=== PATIENT | male | born 1925 | race Caucasian/White ===

== ENCOUNTER 2017-07-23 03:35 | Inpatient (IN) | payer MEDICARE, OTHER ==
[2017-07-23] VITALS (22 sets, daily range): BP systolic 104–173; BP diastolic 57–96; PULSE 52–90; RESP 15–22; TEMP 97.2–98.5; O2SAT 96–100
[2017-07-23] MEDS ORDERED: ASPI325T PO (03:43)
[2017-07-23] MEDS ORDERED: CYMB60CA PO (03:47)
[2017-07-23] MEDS ORDERED: SPIR25TA PO (03:47)
[2017-07-23] MEDS ORDERED: ZIPR20 PO (03:47)
[2017-07-23] MEDS ORDERED: ATOR20TA15 PO (03:47)
[2017-07-23] MEDS ORDERED: NAME5TAB2 PO (03:47)
[2017-07-23] MEDS ORDERED: ALLO100T PO (03:47)
--- NOTE | 2017-07-23 04:02 | RADRPT ---
EXAM DATE/TIME: 07/23/2017 03:57 [facility] COMPARISON: No previous studies available for comparison. INDICATIONS : Short of breath. Altered mental status. MEDICAL HISTORY : None. SURGICAL HISTORY : CABG. ENCOUNTER: Initial ACUITY: 1 day PAIN SCORE: Non-responsive. LOCATION: Bilateral chest FINDINGS: Portable AP view of the chest demonstrates a normal-sized cardiac silhouette calcification of the aor ta in this patient post median sternotomy. Lungs are underinflated. No effusion, consolidation, or pn eumothorax is appreciated. Bones and soft tissues demonstrate no acute abnormality. CONCLUSION: Underinflation. However, no acute cardiopulmonary abnormality is appreciated. Lio Palacios MD on July 23, 2017 at 4:00 Board Certified Radiologist. This report was verified electronically.
[2017-07-23] MEDS ORDERED: DOCU100C PO (04:07)
[2017-07-23] MEDS ORDERED: METH5TAB PO (04:07)
[2017-07-23] MEDS ORDERED: LACTCAP8 PO (04:07)
[2017-07-23] MEDS ORDERED: MIRA3350 PO (04:08)
[2017-07-23 04:11] LABS: AUTOMATED NEUTROPHIL # 4.5 TH/MM3 (1.8-7.7); BASOPHIL # 0.1 TH/MM3 (0-0.2); BASOPHIL % 0.7 % (0.0-2.0); EOSINOPHIL # 0.8 TH/MM3 (0-0.4); EOSINOPHIL % 9.7 % (0.0-4.0); HEMATOCRIT 41.6 % (39.0-51.0); HEMO FLAGS DIFF FINAL; LYMPH % 30.4 % (9.0-44.0); LYMPHOCYTE # 2.6 TH/MM3 (1.0-4.8); MEAN CELL VOLUME 97.2 FL (80.0-100.0); MEAN CORPUSCULAR HEMOGLOBIN 31.1 PG (27.0-34.0); MONO % 6.8 % (0.0-8.0); NEUT % 52.4 % (16.0-70.0); PLATELET COUNT 325 TH/MM3 (150-450); RED BLOOD COUNT 4.28 MIL/MM3 (4.50-5.90); RED CELL DISTRIBUTION WIDTH 15.5 % (11.6-17.2); WHITE BLOOD COUNT 8.5 TH/MM3 (4.0-11.0)
[2017-07-23 04:21] LABS: APTT (PATIENT) 27.3 SEC (24.3-30.1); PROTHROMBIN TIME - PATIENT 11.2 SEC (9.8-11.6)
[2017-07-23] MEDS ORDERED: NEUR100C PO (04:26)
[2017-07-23] MEDS ORDERED: REST15CA PO (04:26)
[2017-07-23] MEDS ORDERED: FURO1TAB60 PO (04:26)
[2017-07-23] MEDS ORDERED: POTA10TA2 PO (04:26)
[2017-07-23] MEDS ORDERED: PERC10TA27 PO (04:26)
[2017-07-23] MEDS ORDERED: MILKSUS PO (04:26)
[2017-07-23] MEDS ORDERED: IPRASOL INH (04:26)
--- NOTE | 2017-07-23 04:30 | PD ---
HPI Chief Complaint: altered mental status Time Seen by Provider: 03:43 Travel History International Travel<30 days: No Contact w/Intl Traveler<30days: No History of Present Illness HPI The patient is an 89 year old male who presents to the [facility] emergency department with a history of change in baseline mentation that was first noticed by the [facility] staff at approximate 2 AM. The patient has a history of urinary retention requiring and out catheterization. They reportedly in and out catheterized him at approximate 2 AM when they noticed that he was less responsive. The patient has a history of dementia and normally becomes agitated, slightly combative when they attempted to catheterize him, however he did not seem to mind the procedure at all. They also reported that at 3 PM yesterday they noticed that he had a right facial droop. The patient has no other new extremity weakness. The patient does have a history of a left sided affecting cerebrovascular accident. The patient on arrival is awake and alert and requesting ice water. The patient denies any acute complaints. He is systems, the patient denies any known recent fevers, cough, congestion, neck pain, chest pain, shortness of breath, abdominal pain, vomiting, diarrhea, urinary symptoms, or new neurologic symptoms. According to the ambulance service that brought the patient and the patient was recently treated for both pneumonia and a urinary tract infection earlier earlier in June. The patient intermittently answers my questions, I am unsure whether this is related to the patient's history of dementia, his history of altered mentation, or his hearing problem. PFSH Past Medical History Narrative Medical The patient's past medical history is significant for coronary artery disease status post coronary artery bypass grafting, history of cerebrovascular accident with residual weakness of the left upper and left lower extremity, history of hypertension, history of acid reflux, hypertension, hyperlipidemia, anxiety and depression, angina, chronic back pain, congestive heart failure, history of headaches, history of being hard of hearing, history of hypotension, history of syncope, history of dementia with behavioral changes, history of venous stasis changes of the legs Past Surgical History Narrative Surgical The patient's past surgical history is not able to be obtained, however the patient has a midline sternotomy scar noted. Social History Alcohol Use: No Tobacco Use: No Substance Use: No Allergies-Medications (Allergen,Severity, Reaction): Coded Allergies: No Known Allergies (Unverified , 07/23/17) Reported Meds & Prescriptions Reported Meds & Active Scripts Active Reported Restoril (Temazepam) 15 Mg Cap 15 Mg PO HS PRN Potassium Chloride ER (Potassium Chloride) 10 Meq Tab 10 Meq PO DAILY Milk of Magnesia Liq (Magnesium Hydroxide) 400 Mg/5 Ml Susp 30 Ml PO Q12HR PRN Percocet (Oxycodone-Acetaminophen) 10-325 mg Tab 1 Tab PO Q4H PRN Lasix (Furosemide) 40 Mg Tab 40 Mg PO DAILY Duoneb (Ipratropium-Albuterol Neb) 0.5-2.5 Mg/3 Ml Neb 1 Nebule INH Q6HR NEB Neurontin (Gabapentin) 100 Mg Cap 100 Mg PO TID Miralax Powder (Polyethylene Glycol 3350 Powder) 17 Gm Powd 17 Gm PO DAILY Mix and dissolve one measuring cap-ful (17 grams) in water or juice. Methadone (Methadone HCl) 5 Mg Tab 5 Mg PO DAILY Docusate Sodium 100 Mg Cap 100 Mg PO BID Probiotic (Lactobacillus Acidophilus) 10 Billion Cell Cap 1 Cap PO BID Allopurinol 100 Mg Tab 100 Mg PO BID Spironolactone 25 Mg Tab 25 Mg PO DAILY Namenda (Memantine) 5 Mg Tab 5 Mg PO DAILY Geodon (Ziprasidone) 20 Mg Cap 20 Mg PO BID Cymbalta DR (Duloxetine HCl) 60 Mg Capdr 60 Mg PO DAILY Atorvastatin (Atorvastatin Calcium) 20 Mg Tab 20 Mg PO HS Aspirin 325 Mg Tab 325 Mg PO DAILY Review of Systems Except as stated in HPI: all other systems reviewed are Neg General / Constitutional: No: Fever Eyes: No: Visual changes HENT: No: Headaches Cardiovascular: No: Chest Pain or Discomfort Respiratory: No: Shortness of Breath Gastrointestinal: No: Abdominal Pain Genitourinary: No: Dysuria Musculoskeletal: No: Pain Skin: No Rash Neurologic: Positive: Change in Mentation, No: Weakness Psychiatric: No: Depression Endocrine: No: Polydipsia Hematologic/Lymphatic: No: Easy Bruising Physical Exam Narrative General: The patient is a well-developed well-nourished male in no acute distress. Head and Neck exam: Head is normocephalic atraumatic. Eyes: EOMI, pupils are equal round and reactive to light and small on examination a 2 mm. Nose: Midline septum with pink mucous membranes Mouth: Dentition unremarkable. Moist mucus membranes. Posterior oropharynx is not erythematous. No tonsillar hypertrophy. Uvula midline. Airway patent. Neck: No palpable lymphadenopathy. No nuchal rigidity. No thyromegaly. Cardiovascular: Irregularly irregular with a rate in the 70s with a 2/6 systolic murmur audible. No pulse deficit to the extremities and simultaneous auscultation and palpation of his radial artery. Lungs: Clear to auscultation bilaterally. No wheezes, rhonchi, or rales. Abdomen: Soft, without tenderness to palpation in all 4 quadrants of the abdomen. No guarding, rebound, or rigidity. Normal bowel sounds are audible. No tenderness on palpation of McBurney's point. Extremities: No clubbing or cyanosis. The patient has chronic venous stasis changes noted of bilateral lower extremities with trace pedal edema on the right, 1+ on the left. The patient has less than 3 second capillary refill of his digits per Back: No costovertebral angle tenderness to palpation. Neurologic Exam: Cranial nerves II through XII are intact. There is no discernible facial droop at this time. The patient has strength on examination that is 5 over 5 in the right upper and right lower extremity. The patient's strength on the left is 4 over 5 in the upper extremity and 3 over 5 in the lower extremity. The patient has intact sensation over all dermatomes. Skin Exam: No rash noted. Intact skin that is warm and dry. Data Data Last Documented VS Vital Signs Date Time Temp Pulse Resp B/P (MAP) Pulse Ox O2 Delivery O2 Flow Rate FiO2 07/23/17 05:36 99 Room Air 07/23/17 05:24 73 16 104/57 (73) 07/23/17 03:40 98.1 Orders Orders Electrocardiogram (07/23/17 03:44) Complete Blood Count With Diff (07/23/17 03:44) Comprehensive Metabolic Panel (07/23/17 03:44) Creatine Kinase (Cpk) (07/23/17 03:44) Ckmb (Isoenzyme) Profile (07/23/17 03:44) Troponin I (07/23/17 03:44) B-Type Natriuretic Peptide (07/23/17 03:44) Prothrombin Time / Inr (Pt) (07/23/17 03:44) Act Partial Throm Time (Ptt) (07/23/17 03:44) Blood Culture (07/23/17 03:44) C-Reactive Protein (Crp) (07/23/17 03:44) Urinalysis - C+S If Indicated (07/23/17 03:44) Magnesium (Mg) (07/23/17 03:44) Chest, Single Ap (07/23/17 03:44) Ct Brain W/O Iv Contrast(Rout) (07/23/17 03:44) Iv Access Insert/Monitor (07/23/17 03:44) Ecg Monitoring (07/23/17 03:44) Oximetry (07/23/17 03:44) Lactic Acid Sepsis Protocol (07/23/17 03:44) Ciprofloxacin 400 Mg Premix (Cipro 400 M (07/23/17 05:00) Nitroglycerin 2% Oint (Nitroglycerin 2% (07/23/17 05:15) Aspirin Chew (Aspirin Chew) (07/23/17 05:15) Admit Order (Ed Use Only) (07/23/17 05:48) Sodium Chlor 0.9% 250 Ml Inj (Ns 250 Ml (07/23/17 06:00) Admit Order (Ed Use Only) (07/23/17 05:51) Labs Laboratory Tests Test 07/23/17 03:50 White Blood Count 8.5 TH/MM3 Red Blood Count 4.28 MIL/MM3 Hemoglobin 13.3 GM/DL Hematocrit 41.6 % Mean Corpuscular Volume 97.2 FL Mean Corpuscular Hemoglobin 31.1 PG Mean Corpuscular Hemoglobin Concent 32.0 % Red Cell Distribution Width 15.5 % Platelet Count 325 TH/MM3 Mean Platelet Volume 7.7 FL Neutrophils (%) (Auto) 52.4 % Lymphocytes (%) (Auto) 30.4 % Monocytes (%) (Auto) 6.8 % Eosinophils (%) (Auto) 9.7 % Basophils (%) (Auto) 0.7 % Neutrophils # (Auto) 4.5 TH/MM3 Lymphocytes # (Auto) 2.6 TH/MM3 Monocytes # (Auto) 0.6 TH/MM3 Eosinophils # (Auto) 0.8 TH/MM3 Basophils # (Auto) 0.1 TH/MM3 CBC Comment DIFF FINAL Differential Comment Prothrombin Time 11.2 SEC Prothromb Time International Ratio 1.0 RATIO Activated Partial Thromboplast Time 27.3 SEC Blood Urea Nitrogen 12 MG/DL Creatinine 0.83 MG/DL Random Glucose 95 MG/DL Total Protein 7.0 GM/DL Albumin 2.6 GM/DL Calcium Level 8.7 MG/DL Magnesium Level 2.2 MG/DL Alkaline Phosphatase 126 U/L Aspartate Amino Transf (AST/SGOT) 19 U/L Alanine Aminotransferase (ALT/SGPT) 11 U/L Total Bilirubin 0.5 MG/DL Sodium Level 144 MEQ/L Potassium Level 4.7 MEQ/L Chloride Level 107 MEQ/L Carbon Dioxide Level 31.5 MEQ/L Anion Gap 6 MEQ/L Estimat Glomerular Filtration Rate 87 ML/MIN Lactic Acid Level 1.3 mmol/L Total Creatine Kinase 52 U/L Troponin I 0.12 NG/ML C-Reactive Protein 1.39 MG/DL B-Type Natriuretic Peptide 78 PG/ML MDM Medical Decision Making Medical Screen Exam Complete: Yes Emergency Medical Condition: Yes Medical Record Reviewed: Yes Interpretation(s) Last Impressions Head CT 07/23/17343 Signed Impressions: Service Date/Time: Sunday, July 23, 2017 04:20 - CONCLUSION: 1. No acute intracranial abnormality is identified. 2. Possible spinal canal narrowing at the C1-C2 level. Lio Palacios MD Chest X-Ray 07/23/17343 Signed Impressions: Service Date/Time: Sunday, July 23, 2017 03:57 - CONCLUSION: Underinflation. However, no acute cardiopulmonary abnormality is appreciated. Lio Palacios MD Differential Diagnosis Altered mental status related to intracranial hemorrhage, versus intracranial mass, versus ischemic stroke, versus sepsis related encephalopathy, versus metabolic encephalopathy, versus infectious process such as UTI Narrative Course During the course of the patients emergency department visit, the patients history, examination, and differential diagnosis were reviewed with the patient. The patient had IV access obtained and blood work sent for analysis. The patient was placed on a monitoring and evaluation advisor with oximetry and blood pressure monitoring. An ECG was done on arrival. The patient's ECG shows a junctional appearing rhythm with frequent premature ventricular complexes. No acute ST segment elevation is noted. Review of the patient's [facility] record reveals that on July 21 he did have a urinary tract infection diagnosed by urinalysis with a culture positive for Serratia that was sensitive to ciprofloxacin. The patient was initially provided ciprofloxacin 400 mg IV 1. The patients laboratory studies were reviewed and remarkable for a white count of 8.5, hemoglobin 13.3, platelets 325 with 9.7 eosinophils, lactic acid 1.3, PT 11.2, PTT 27.3. CMP is remarkable for a GFR of 87, ALT 11, alkaline phosphatase 126, troponin I 0.12, CPK 52, C-reactive protein 1.39, albumin 2.6, BNP 78, lactic acid 1.3. PT PTT within normal limits. INR 1.0 Given the patient's elevated troponin with normal renal function and dysrhythmia , aspirin 324 mg was administered 1, an inch of Nitropaste was ordered to be placed on the chest wall. The patient's initial blood pressure was a systolic of 170, however it then dropped down to 104 prior to the placement of the nitroglycerin. The patient continues to be chest pain-free. The patient's nitroglycerin will be held while the patient is given a normal saline 250 mL bolus. The patient will be started on heparin per [place] protocol due to the patient's dysrhythmia and elevated troponin I as I'm concerned that this may be a non-STEMI. Radiology studies were reviewed and remarkable for a chest x-ray that shows evidence of under inflation, however no acute cardiopulmonary abnormality is otherwise appreciated. CT scan of the brain shows no acute intracranial abnormality, possible spinal canal narrowing at C1-C2. The patients results were discussed with the patient, including the plan of care. I explained that further testing and/ or monitoring is indicated based on the patients history, examination, and/ or laboratory findings. Therefore, I recommended admission for additional evaluation. The patient expressed understanding and was agreeable with this plan. The patient was admitted to the hospital in guarded condition and [facility] Physician Communication Physician Communication The patient's case was discussed with Dr. Orosco who did agree to admit the patient for further evaluation and treatment at this time. Diagnosis Primary Impression: Dysrhythmia, cardiac Qualified Codes: I49.8 - Other specified cardiac arrhythmias Additional Impressions: Altered mental status Qualified Codes: R40.0 - Somnolence Elevated troponin Urinary tract infection Qualified Codes: T83.511A - Infection and inflammatory reaction due to indwelling urethral catheter, initial encounter; N39.0 - Urinary tract infection , site not specified Admitting Information Admitting Physician Requests: Admit Daphne Denney MD Jul 23, 2017 04:30
--- NOTE | 2017-07-23 04:43 | RADRPT ---
EXAM DATE/TIME: 07/23/2017 04:20 [facility] COMPARISON: No previous studies available for comparison. INDICATIONS : Altered mental status, generalized weakness. RADIATION DOSE: 32.94 CTDIvol (mGy) MEDICAL HISTORY : Non-responsive. SURGICAL HISTORY : Non-responsive. ENCOUNTER: Initial ACUITY: 1 day PAIN SCALE: Non-responsive LOCATION: cranial TECHNIQUE: Multiple contiguous axial images were obtained of the head. Using automated exposure control and adj ustment of the mA and/or kV according to patient size, radiation dose was kept as low as reasonably a chievable to obtain optimal diagnostic quality images. DICOM format image data is available electro nically for review and comparison. FINDINGS: CEREBRUM: There is generalized atrophy. Ventricles are normal in size given the degree of atrophy present. No evidence of midline shift, mass lesion, hemorrhage or acute infarction. No extra-axial fluid collect ions are seen. POSTERIOR FOSSA: The cerebellum and brainstem are intact. The 4th ventricle is midline. The cerebellopontine angle i s unremarkable. EXTRACRANIAL: Visualized sinuses are clear. There is possible narrowing at the C1-C2 level. SKULL: The calvaria is intact. No evidence of skull fracture. CONCLUSION: 1. No acute intracranial abnormality is identified. 2. Possible spinal canal narrowing at the C1-C2 level. Lio Palacios MD on July 23, 2017 at 4:40 Board Certified Radiologist. This report was verified electronically.
[2017-07-23 04:56] LABS: ALKALINE PHOSPHATASE 126 U/L (45-117); ALT (GPT) 11 U/L (12-78); ANION GAP 6 MEQ/L (5-15); AST (GOT) 19 U/L (15-37); BICARBONATE 31.5 MEQ/L (21.0-32.0); BLOOD UREA NITROGEN 12 MG/DL (7-18); CHLORIDE 107 MEQ/L (98-107); GLOMERULAR FILTRATION RATE 87 ML/MIN (>89); MAGNESIUM 2.2 MG/DL (1.5-2.5); SODIUM (NA) 144 MEQ/L (136-145); TOTAL BILIRUBIN ADULT 0.5 MG/DL (0.2-1.0)
[2017-07-23 04:57] LABS: CREATINE KINASE 52 U/L (39-308); POTASSIUM 4.7 MEQ/L (3.5-5.1)
[2017-07-23] MEDS ORDERED: CIPROFLOXACIN 400 MG PREMIX 200 ML IV ONE (05:00)
[2017-07-23] MEDS ORDERED: ASPIRIN 81 MG CHEW TAB CHEW ONE (05:15)
[2017-07-23] MEDS ORDERED: NITROGLYCERIN 2% OINT 1 GM PACKET TOPICAL ONE (05:15)
[2017-07-23] MEDS ORDERED: SODIUM CHLOR 0.9% 250 ML INJ 250 ML IV ONE (06:00)
[2017-07-23] MEDS ORDERED: NALOXONE HCL 0.4 MG/ML AMP IV PRN (07:00)
[2017-07-23] MEDS ORDERED: SODIUM CHLORIDE 0.9% FLUSH 10 ML FLUSH IV FLUSH PRN (07:00)
[2017-07-23] MEDS: HEPARIN-D5W 25,000 U/250 ML 250 ML IV PRN (08:01)
[2017-07-23] MEDS: SODIUM CHLORIDE 0.9% FLUSH 10 ML FLUSH IV FLUSH SCH ×2 (08:05→20:36)
--- NOTE | 2017-07-23 09:10 | PD.CONS ---
History of Present Illness Service Neurology Consult Requested By medical Reason for Consult stroke/sz Primary Care Physician Amandeep Mccarty MD History of Present Illness 89 year old male who presents to the [facility] emergency department with worsening confusion, lethargy noticed by the senior living staff at approximate 2 AM, The patient has a history of dementia and normally becomes agitated, slightly combative when they attempted to catheterize him, however he did not seem to mind the procedure at all. They also reported that at 3 PM yesterday they noticed that he had a right facial droop. The patient has no other new extremity weakness. The patient does have a history of a left sided affecting cerebrovascular accident. ct brain naicp. pmhx obtained from medical chart as pt is a poor hx. he states he had a stroke affecting his left side. unable to give details of when/where. PFSH Past Medical History Narrative Medical The patient's past medical history is significant for coronary artery disease status post coronary artery bypass grafting, history of cerebrovascular accident with residual weakness of the left upper and left lower extremity, history of hypertension, history of acid reflux, hypertension, hyperlipidemia, anxiety and depression, angina, chronic back pain, congestive heart failure, history of headaches, history of being hard of hearing, history of hypotension, history of syncope, history of dementia with behavioral changes, history of venous stasis changes of the legs Past Surgical History Narrative Surgical The patient's past surgical history is not able to be obtained, however the patient has a midline sternotomy scar noted. Social History Alcohol Use: No Tobacco Use: No Substance Use: No Allergies-Medications (Allergen,Severity, Reaction): Coded Allergies: No Known Allergies (Unverified , 07/23/17) Reported Meds & Prescriptions Reported Meds & Active Scripts Active Reported Restoril (Temazepam) 15 Mg Cap 15 Mg PO HS PRN Potassium Chloride ER (Potassium Chloride) 10 Meq Tab 10 Meq PO DAILY Milk of Magnesia Liq (Magnesium Hydroxide) 400 Mg/5 Ml Susp 30 Ml PO Q12HR PRN Percocet (Oxycodone-Acetaminophen) 10-325 mg Tab 1 Tab PO Q4H PRN Lasix (Furosemide) 40 Mg Tab 40 Mg PO DAILY Duoneb (Ipratropium-Albuterol Neb) 0.5-2.5 Mg/3 Ml Neb 1 Nebule INH Q6HR NEB Neurontin (Gabapentin) 100 Mg Cap 100 Mg PO TID Miralax Powder (Polyethylene Glycol 3350 Powder) 17 Gm Powd 17 Gm PO DAILY Mix and dissolve one measuring cap-ful (17 grams) in water or juice. Methadone (Methadone HCl) 5 Mg Tab 5 Mg PO DAILY Docusate Sodium 100 Mg Cap 100 Mg PO BID Probiotic (Lactobacillus Acidophilus) 10 Billion Cell Cap 1 Cap PO BID Allopurinol 100 Mg Tab 100 Mg PO BID Spironolactone 25 Mg Tab 25 Mg PO DAILY Namenda (Memantine) 5 Mg Tab 5 Mg PO DAILY Geodon (Ziprasidone) 20 Mg Cap 20 Mg PO BID Cymbalta DR (Duloxetine HCl) 60 Mg Capdr 60 Mg PO DAILY Atorvastatin (Atorvastatin Calcium) 20 Mg Tab 20 Mg PO HS Aspirin 325 Mg Tab 325 Mg PO DAILY Review of Systems Except as stated in HPI: all other systems reviewed are Neg Review of Systems All other ROS: ROS reviewed as documented in chart Past Family Social History Allergies: Coded Allergies: No Known Allergies (Unverified , 07/23/17) Active Ordered Medications Current Medications Medications (Trade) Dose Ordered Sig/Alejandra Route Start Time Stop Time Status Last Admin Heparin Sodium/ Dextrose 250 ml @ 11.4 mls/hr [id number] PRN IV 07/23/17 06:40 07/23/17 08:01 (NS Flush) 2 ml UNSCH PRN IV FLUSH 07/23/17 07:00 (NS Flush) 2 ml BID IV FLUSH 07/23/17 09:00 07/23/17 08:05 (Narcan Inj) 0.4 mg UNSCH PRN IV 07/23/17 07:00 Ciprofloxacin/ Dextrose 200 ml @ 200 mls/hr Q12H IV 07/23/17 18:00 Exam I&O / VS Vital Signs Date Time Temp Pulse Resp B/P (MAP) Pulse Ox O2 Delivery O2 Flow Rate FiO2 07/23/17 08:00 97 Nasal Cannula 2.00 07/23/17 08:00 72 15 142/70 (94) 97 Nasal Cannula 2.00 07/23/17 07:00 79 22 132/60 (84) 97 Nasal Cannula 2.00 07/23/17 06:21 64 17 142/91 (108) 99 Room Air 07/23/17 05:36 99 Room Air 07/23/17 05:24 73 16 104/57 (73) Room Air 07/23/17 05:19 96 Room Air 07/23/17 03:40 98.1 16 173/80 (111) 07/23/17 03:40 98.1 72 16 173/80 (111) 99 Room Air Neurologic: Alert Psychiatric: Cooperative Exam Comments ox 1. unable to give date or exact place. inattentive but follows, reduced hearing bilterally, dysarthric speech, face sym grossly, mild left hemiparesis 3 -4/5 leg weaker then arm, mild left sided hyper-reflexia, no clonus, planterflexor, withdraws to pin, further sensory/cerebellar/gait limited 2/2 mental status, fall risk Review/Management Diagnosis/Plan: (1) CVA, old, hemiparesis ICD Codes: I69.359 - Hemiplegia and hemiparesis following cerebral infarction affecting unspecified side Status: Chronic Plan: probably 2/2 uti r/o new infarct/sz recs eeg mri brain therapy follow exam medical tx'ing uti (2) UTI (urinary tract infection) ICD Codes: N39.0 - Urinary tract infection, site not specified Status: Acute (3) Altered mental status ICD Codes: R41.82 - Altered mental status, unspecified Status: Acute (4) Urinary tract infection ICD Codes: N39.0 - Urinary tract infection, site not specified Status: Acute Problem Qualifiers (1) Altered mental status: Qualified Codes: R40.0 - Somnolence (2) Urinary tract infection: Qualified Codes: T83.511A - Infection and inflammatory reaction due to indwelling urethral catheter, initial encounter; N39.0 - Urinary tract infection , site not specified Yordy Wheatley MD Jul 23, 2017 09:10
--- NOTE | 2017-07-23 09:23 | RADRPT ---
EXAM DATE/TIME: 07/23/2017 08:03 [facility] COMPARISON: No previous studies available for comparison. INDICATIONS : Transient ischemic attack. MEDICAL HISTORY : Hypertension. Gastroesophageal reflux disease. Dementia. Cerebrovascular accident. Hyperlipidemia. De pression. Anxiety. Chronic back pain. Congestive heart failure. Headaches. Hearing loss. Coronary art filiberto disease. Lower extremity venous stasis. Anticoagulant therapy. SURGICAL HISTORY : CABG. ENCOUNTER: Initial ACUITY: 1 day PAIN SCORE: 0/10 LOCATION: Bilateral neck PEAK SYSTOLIC VELOCITIES (cm/sec): ICA/CCA RATIO: Right: 1.5 Left: 1.2 ICA: Right: 59 Left: 71 CCA: Right: 40 Left: 60 ECA: Right: 79 Left: 66 VERTEBRAL: Right: 41 antegrade Left: 44 antegrade Elevated flow velocities and ICA/CCA ratios have been found to correlate with increased degrees of vessel stenosis, calculated as percentage of diameter relative to a normal segment of distal ICA/CCA FINDINGS: RIGHT CAROTID: Moderate calcific plaquing. No significant stenosis is visualized. The waveforms are within normal l imits. LEFT CAROTID: Moderate calcific plaquing. No significant stenosis is visualized. The waveforms are within normal l imits. VERTEBRAL ARTERIES: Antegrade flow is seen in both vertebral arteries. MISCELLANEOUS: None. CONCLUSION: No evidence of flow-limiting carotid stenosis. Lio Méndez MD on July 23, 2017 at 9:11 Board Certified Radiologist. This report was verified electronically.
--- NOTE | 2017-07-23 10:44 | EKG ---
Date Performed: 07/23/2017 Time Performed: 04:02:45 PTAGE: 89 years EKG: Atrial fibrillation with controlled ventricular rate Ventricular premature complexes Left b undle branch block Left axis deviation ABNORMAL ECG PREVIOUS TRACING : 07/23/2017 04.01 DOCTOR: Gerald Denney Interpretating Date/Time 07/23/2017 10:43:41
[2017-07-23] MEDS ORDERED: MAGNESIUM HYDROXIDE SUSP 30 ML CUP PO PRN (11:00)
--- NOTE | 2017-07-23 11:01 | HHI.HP ---
HPI Service [facility] Hospitalists Primary Care Physician Amandeep Mccarty MD Admission Diagnosis AMS, Dysrhythmia, elevated troponin, UTI Diagnoses: (1) CVA, old, hemiparesis Diagnosis: Secondary (2) Hemiplegia following CVA (cerebrovascular accident) Diagnosis: Principal (3) Elevated troponin Diagnosis: Principal (4) Altered mental status Diagnosis: Principal (5) Dysrhythmia, cardiac (6) Urinary tract infection Diagnosis: Secondary (7) UTI (urinary tract infection) Diagnosis: Principal Chief Complaint: Altered mental status at the shelter facility Travel History International Travel<30 Days: No Contact w/Intl Traveler <30 Da: No History of Present Illness The patient is an 89 year old male who presents to the [facility] emergency department with a history of change in baseline mentation that was first noticed by the custodial staff at approximate 2 AM. The patient has a history of urinary retention requiring IN and out catheterization. They reportedly in and out catheterized him at approximate 2 AM when they noticed that he was less responsive. The patient has a history of dementia and normally becomes agitated, slightly combative when they attempted to catheterize him, however he did not seem to mind the procedure at all. They also reported that at 3 PM yesterday they noticed that he had a right facial droop. The patient has no other new extremity weakness. The patient does have a history of a left sided affecting cerebrovascular accident. The patient on arrival is awake and alert and requesting ice water. The patient denies any acute complaints. HIS REVIEW OF systems, the patient denies any known recent fevers,cough, congestion, neck pain, chest pain, shortness of breath, abdominal pain, vomiting, diarrhea, urinary symptoms, or new neurologic symptoms. According to the ambulance service that brought the patient and the patient was recently treated for both pneumonia and a urinary tract infection earlier earlier in June. The patient intermittently answers my questions, I am unsure whether this is related to the patient's history of dementia, his history of altered mentation, or his hearing problem. Patient did not follow any commands for me when I was in the room his nurse stated that he followed some for her earlier Review of Systems ROS Limitations: Altered Mental Status, Poor Historian Past Family Social History Past Medical History The patient's past medical history is significant for coronary artery disease status post coronary artery bypass grafting, history of cerebrovascular accident with residual weakness of the left upper and left lower extremity, history of hypertension, history of acid reflux, hypertension, hyperlipidemia, anxiety and depression, angina, chronic back pain, congestive heart failure, history of headaches, history of being hard of hearing, history of hypotension, history of syncope, history of dementia with behavioral changes, history of venous stasis changes of the legs Past Surgical History The patient's past surgical history is not able to be obtained, however the patient has a midline sternotomy scar noted. Reported Medications Reported Meds & Active Scripts Active Reported Restoril (Temazepam) 15 Mg Cap 15 Mg PO HS PRN Potassium Chloride ER (Potassium Chloride) 10 Meq Tab 10 Meq PO DAILY Milk of Magnesia Liq (Magnesium Hydroxide) 400 Mg/5 Ml Susp 30 Ml PO Q12HR PRN Percocet (Oxycodone-Acetaminophen) 10-325 mg Tab 1 Tab PO Q4H PRN Lasix (Furosemide) 40 Mg Tab 40 Mg PO DAILY Duoneb (Ipratropium-Albuterol Neb) 0.5-2.5 Mg/3 Ml Neb 1 Nebule INH Q6HR NEB Neurontin (Gabapentin) 100 Mg Cap 100 Mg PO TID Miralax Powder (Polyethylene Glycol 3350 Powder) 17 Gm Powd 17 Gm PO DAILY Mix and dissolve one measuring cap-ful (17 grams) in water or juice. Methadone (Methadone HCl) 5 Mg Tab 5 Mg PO DAILY Docusate Sodium 100 Mg Cap 100 Mg PO BID Probiotic (Lactobacillus Acidophilus) 10 Billion Cell Cap 1 Cap PO BID Allopurinol 100 Mg Tab 100 Mg PO BID Spironolactone 25 Mg Tab 25 Mg PO DAILY Namenda (Memantine) 5 Mg Tab 5 Mg PO DAILY Geodon (Ziprasidone) 20 Mg Cap 20 Mg PO BID Cymbalta DR (Duloxetine HCl) 60 Mg Capdr 60 Mg PO DAILY Atorvastatin (Atorvastatin Calcium) 20 Mg Tab 20 Mg PO HS Aspirin 325 Mg Tab 325 Mg PO DAILY Allergies: Coded Allergies: No Known Allergies (Unverified , 07/23/17) Active Ordered Medications Current Medications Ciprofloxacin/ Dextrose 200 ml @ 200 mls/hr ONCE ONCE IV Last administered on 07/23/17 05:51; Start 07/23/17 at 05:00; Stop 07/23/17 at 06:16; Status DC Nitroglycerin (Nitroglycerin 2% Oint) 1 inch ONCE ONCE TOPICAL ; Start at 05:15; Stop 07/23/17 at 05:16; Status DC Aspirin (Aspirin Chew) 324 mg ONCE ONCE CHEW Last administered on 07/23/17 05 :15; Start 07/23/17 at 05:15; Stop 07/23/17 at 05:16; Status DC Sodium Chloride 250 ml @ 250 mls/hr BOLUS ONCE IV Last administered on 06:00; Start 07/23/17 at 06:00; Stop 07/23/17 at 06:59; Status DC Heparin Sodium/ Dextrose 250 ml @ 11.4 mls/hr [id number] PRN IV Coagulation management Last administered on 07/23/17 08:01; Start 07/23/17 at 06:40 Sodium Chloride (NS Flush) 2 ml UNSCH PRN IV FLUSH FLUSH AFTER USING IV ACCESS ; Start 07/23/17 at 07:00 Sodium Chloride (NS Flush) 2 ml BID IV FLUSH Last administered on 07/23/17 08: 05; Start 07/23/17 at 09:00 Naloxone HCl (Narcan Inj) 0.4 mg UNSCH PRN IV SEE LABEL COMMENTS; Start at 07:00 Ciprofloxacin/ Dextrose 200 ml @ 200 mls/hr Q12H IV ; Start 07/23/17 at 18:00 Family History Unobtainable from the patient Social History LIVES IN A [facility] FACILITY DOES NOT SMOKE DOES NOT DRINK OR USE illegal drugs at this time Physical Exam Vital Signs Vital Signs Date Time Temp Pulse Resp B/P (MAP) Pulse Ox O2 Delivery O2 Flow Rate FiO2 07/23/17 08:00 97 Nasal Cannula 2.00 07/23/17 08:00 72 15 142/70 (94) 97 Nasal Cannula 2.00 07/23/17 07:00 79 22 132/60 (84) 97 Nasal Cannula 2.00 07/23/17 06:21 64 17 142/91 (108) 99 Room Air 07/23/17 05:36 99 Room Air 07/23/17 05:24 73 16 104/57 (73) Room Air 8/29/17 05:19 96 Room Air 07/23/17 03:40 98.1 16 173/80 (111) 07/23/17 03:40 98.1 72 16 173/80 (111) 99 Room Air Physical Exam GENERAL: This is a well-nourished, well-developed patient, in no apparent distress. Currently nonverbal and did not follow any commands did not answer any questions SKIN: No rashes, ecchymoses or lesions. Cool and dry. Right lower extremity has a wound that stressed HEAD: Atraumatic. Normocephalic. No temporal or scalp tenderness. EYES: Pupils equal round and reactive. Extraocular motions intact. No scleral icterus. No injection or drainage. ENT: Nose without bleeding, purulent drainage or septal hematoma. Throat without erythema, tonsillar hypertrophy or exudate. Uvula midline. Airway patent. NECK: Trachea midline. No JVD or lymphadenopathy. Supple, nontender, no meningeal signs. CARDIOVASCULAR: Regular rate and rhythm without murmurs, gallops, or rubs. S1 and S2 no S3 or S4 RESPIRATORY: Clear to auscultation. Breath sounds equal bilaterally. No wheezes , rales, or rhonchi. GASTROINTESTINAL: Abdomen soft, non-tender, nondistended. No hepato-splenomegaly , or palpable masses. No guarding. MUSCULOSKELETAL: Extremities without clubbing, cyanosis, or edema. No joint tenderness, effusion, or edema noted. No calf tenderness. Negative Homans sign bilaterally. Some edema in bilateral lower extremities. And some swelling in the right lower leg NEUROLOGICAL: Awake and alert. Not able to assess cranial nerves II through XII since patient is not following any commands. Motor and sensory grossly are limited. Generalized weakness upper extremity and lower extremity muscle aphasic and nonverbal at this moment Laboratory Laboratory Tests Test 07/23/17 03:50 07/23/17 09:30 White Blood Count 8.5 Red Blood Count 4.28 Hemoglobin 13.3 Hematocrit 41.6 Mean Corpuscular Volume 97.2 Mean Corpuscular Hemoglobin 31.1 Mean Corpuscular Hemoglobin Concent 32.0 Red Cell Distribution Width 15.5 Platelet Count 325 Mean Platelet Volume 7.7 Neutrophils (%) (Auto) 52.4 Lymphocytes (%) (Auto) 30.4 Monocytes (%) (Auto) 6.8 Eosinophils (%) (Auto) 9.7 Basophils (%) (Auto) 0.7 Neutrophils # (Auto) 4.5 Lymphocytes # (Auto) 2.6 Monocytes # (Auto) 0.6 Eosinophils # (Auto) 0.8 Basophils # (Auto) 0.1 CBC Comment DIFF FINAL Differential Comment Prothrombin Time 11.2 Prothromb Time International Ratio 1.0 Activated Partial Thromboplast Time 27.3 Blood Urea Nitrogen 12 Creatinine 0.83 Random Glucose 95 Total Protein 7.0 Albumin 2.6 Calcium Level 8.7 Magnesium Level 2.2 Alkaline Phosphatase 126 Aspartate Amino Transf (AST/SGOT) 19 Alanine Aminotransferase (ALT/SGPT) 11 Total Bilirubin 0.5 Sodium Level 144 Potassium Level 4.7 Chloride Level 107 Carbon Dioxide Level 31.5 Anion Gap 6 Estimat Glomerular Filtration Rate 87 Lactic Acid Level 1.3 Total Creatine Kinase 52 Troponin I 0.12 C-Reactive Protein 1.39 B-Type Natriuretic Peptide 78 Date/Time Source Procedure Growth Status 07/23/17 03:50 Blood Peripheral Aerobic Blood Culture Pending Received 07/23/17 03:50 Blood Peripheral Anaerobic Blood Culture Pending Received Result Diagram: 07/23/17 0350 07/23/17 0350 Imaging Last Impressions Head CT 07/23/17343 Signed Impressions: Service Date/Time: Sunday, July 23, 2017 04:20 - CONCLUSION: 1. No acute intracranial abnormality is identified. 2. Possible spinal canal narrowing at the C1-C2 level. Lio Palacios MD Chest X-Ray 07/23/174 Signed Impressions: Service Date/Time: Sunday, July 23, 2017 03:57 - CONCLUSION: Underinflation. However, no acute cardiopulmonary abnormality is appreciated. Lio Palcaios MD Carotid Artery Ultrasound 07/23/17 0000 Signed Impressions: Service Date/Time: Sunday, July 23, 2017 08:03 - CONCLUSION: No evidence of flow-limiting carotid stenosis. MD Any Deutsch VTE Risk Assessment Any VTE Risk Assessment: Mod/High Risk (score >= 2) Caprini Risk Assessment Model Point Value = 1 Point Value = 2 Point Value = 3 Point Value = 5 Age 41-60 Minor surgery BMI > 25 kg/m2 Swollen legs Varicose veins or History of unexplained or recurrent spontaneous Oral contraceptives or hormone replacement Sepsis (< 1 month) Serious lung disease, including pneumonia (< 1 month) Abnormal pulmonary function Acute myocardial infarction Congestive heart failure (< 1 month) History of inflammatory bowel disease Medical patient at bed rest Age 61-74 Arthroscopic surgery Major open surgery (> 45 min) Laparoscopic surgery (> 45 min) Malignancy Confined to bed (> 72 hours) Immobilizing plaster cast Central venous access Age >= 75 History of VTE Family history of VTE Factor V Leiden Prothrombin [id number] Lupus anticoagulant Anticardiolipin antibodies Elevated serum homocysteine Heparin-induced thrombocytopenia Other congenital or acquired thrombophilia Stroke (< 1 month) Elective arthroplasty Hip, pelvis, or leg fracture Acute spinal cord injury (< 1 month) Prophylaxis Regimen Total Risk Factor Score Risk Level Prophylaxis Regimen 0-1 Low Early ambulation 2 Moderate Order ONE of the following: *Sequential Compression Device (SCD) *Heparin 5000 units SQ BID 3-4 Higher Order ONE of the following medications: *Heparin 5000 units SQ TID *Enoxaparin/Lovenox 40 mg SQ daily (WT < 150 kg, CrCl > 30 mL/min) *Enoxaparin/Lovenox 30 mg SQ daily (WT < 150 kg, CrCl > 10-29 mL/min) *Enoxaparin/Lovenox 30 mg SQ BID (WT < 150 kg, CrCl > 30 mL/min) AND/OR *Sequential Compression Device (SCD) 5 or more Highest Order ONE of the following medications: *Heparin 5000 units SQ TID (Preferred with Epidurals) *Enoxaparin/Lovenox 40 mg SQ daily (WT < 150 kg, CrCl > 30 mL/min) *Enoxaparin/Lovenox 30 mg SQ daily (WT < 150 kg, CrCl > 10-29 mL/min) *Enoxaparin/Lovenox 30 mg SQ BID (WT < 150 kg, CrCl > 30 mL/min) AND *Sequential Compression Device (SCD) Assessment and Plan Problem List: (1) UTI (urinary tract infection) ICD Code: N39.0 - Urinary tract infection, site not specified (2) CVA, old, hemiparesis ICD Code: I69.359 - Hemiplegia and hemiparesis following cerebral infarction affecting unspecified side (3) Hemiplegia following CVA (cerebrovascular accident) ICD Code: I69.359 - Hemiplegia and hemiparesis following cerebral infarction affecting unspecified side (4) Elevated troponin ICD Code: R74.8 - Abnormal levels of other serum enzymes Status: Acute (5) Altered mental status ICD Code: R41.82 - Altered mental status, unspecified Status: Acute (6) Dysrhythmia, cardiac ICD Code: I49.9 - Cardiac arrhythmia, unspecified Status: Acute (7) Urinary tract infection ICD Code: N39.0 - Urinary tract infection, site not specified Status: Acute Assessment and Plan Abnormal cardiac rhythm. With elevated troponins consult cardiology get echo and troponins Altered mental status possibly due to UTI versus CVA patient has chronic Chow catheters or urinary catheters inserted and removed multiple times a day History of CVA History of dementia Chronic anticoagulation with aspirin Confusion Urinary tract continue on current antibiotics Hypertension on medications hyperlipidemia on statin Chronic pain on methadone Chronic anxiety depression dementia continue home medications Avoid sedating medication Chronic neurogenic bladder versus bladder outlet obstruction with chronic straight catheter multiple times a day As been seen by neurology. We'll consult cardiology and patient will be followed throughout the admission. Having echo Physician Certification 2 Midnight Certification Type: Admission for Inpatient Services Order for Inpatient Services The services are ordered in accordance with Medicare regulations or non- Medicare payer requirements, as applicable. In the case of services not specified as inpatient-only, they are appropriately provided as inpatient services in accordance with the 2-midnight benchmark. Estimated LOS (days): 3 3 days is the estimated time the patient will need to remain in the hospital, assuming treatment plan goals are met and no additional complications. Post-Hospital Plan: SNF Problem Qualifiers (1) Altered mental status: Qualified Codes: R40.0 - Somnolence (2) Dysrhythmia, cardiac: Qualified Codes: I49.8 - Other specified cardiac arrhythmias (3) Urinary tract infection: Qualified Codes: T83.511A - Infection and inflammatory reaction due to indwelling urethral catheter, initial encounter; N39.0 - Urinary tract infection , site not specified James Aldana DO Jul 23, 2017 11:00
--- NOTE | 2017-07-23 12:52 | MB ---
cc: ZACK CHERRY M.D. DATE OF CONSULTATION 07/23/2017 REASON FOR CONSULTATION For evaluation of heart disease. HISTORY OF PRESENT ILLNESS Norm Murphy is an 89[facility] patient brought into the hospital for a change in mental status. We do not have any old records available. I have spoken to the niece as well as the grandniece and discovered the patient has had open heart bypass surgery around 2007. There is a question of previous paralysis and possible stroke but the niece could not confirm that with certainly. He has had hypertension. He has had dementia. He was noted to have a change in baseline mentation around 2 o'clock in the morning. They also report at 03:00 p.m. yesterday had a right facial droop. There is a mention of a previous left-sided CVA. I am not able to verify that because I do not have the records. PAST MEDICAL HISTORY 1. Heart disease with previous bypass surgery. 2. Supposedly prior stroke. 3. Hypertension. 4. Acid reflux. 5. Hyperlipidemia. 6. Anxiety depression. 7. Chronic back pain. 8. CHF. 9. History of headaches. 10. [id number]. PAST SURGICAL HISTORY 1. Notable for the open heart bypass. 2. The niece thinks he had knee surgery and possibly hip surgery. REVIEW OF SYSTEMS Complete review of systems noncontributory or unavailable. MEDICATIONS 1. Lasix 40 mg daily. 2. Spirolactone 25 mg daily. 3. Aspirin 325 daily. 4. Atorvastatin 20 mg daily. 5. Plus a bunch of other noncardiac medications. Some additional history provided by the niece was that the patient has a history of swelling in his legs. SOCIAL HISTORY Does not smoke or drink. Lives in a residential facility. PHYSICAL EXAMINATION GENERAL: Physical exam reveals a pleasant elderly, confused white male who is able to tell me he is from [place]. No other meaningful history provided. VITAL SIGNS: Charted. Initially somewhat hypertensive; that has improved. He has a normal heart rate but he is in A-fib. HEENT: Exam unremarkable. NECK: Negative for bruits. CHEST: Clear to auscultation. CARDIAC EXAM: S1 and S2. Irregular rate and rhythm. No S3 or S4. ABDOMEN: Soft. EXTREMITIES: Venous insufficiency changes with 1+ edema. Pulses are palpable but somewhat diminished in the feet. NEUROLOGICALLY: He is awake. He is not oriented. LABORATORY DATA His labs are charted. Hematocrit is 41.6, creatinine is 0.83. Troponin was 0.12 and 0.11 which is flat. IMAGING STUDIES Head CT showed possible narrowing of C1-C2, otherwise negative. Carotids showed moderate plaque, not significant. IMPRESSION 1. Primary reason for admission was change in mental status. The patient is in A-fib. I question whether he has simply had an embolic event related to the A-fib. He is currently on IV heparin. I recommend transitioning to Eliquis at a dose of 5 mg b.i.d. once cleared by Neurology. 2. History of coronary artery disease and previous bypass, not able to elicit any chest pain from him. Troponins are nonspecifically elevated and the troponin curve is flat. At this point doubt the patient has acute coronary syndrome. EKG is not that helpful because of an underlying left bundle-branch block. PLAN We will follow him along with you. Thank you for the consultation. MD SARAH Buckley/CLIFFORD /12:13 PM /12:21 PM
[2017-07-23] MEDS: GABAPENTIN 100 MG CAP PO SCH ×2 (14:56→17:41)
[2017-07-23] MEDS: DULoxetine HCl DR 60 MG CAP PO SCH (14:56)
[2017-07-23] MEDS: RESP: ALBUTEROL 2.5 MG/IPRATROPIUM 0.5 MG NEB (SCH) INH ×2 (15:19→19:28)
[2017-07-23] MEDS ORDERED: EPINEPHrine HCL (1:10,000) 1 MG/10 ML SYRINGE ONE (15:51)
[2017-07-23] MEDS ORDERED: ATROPINE SULFATE 1 MG/10 ML SYRINGE ONE (15:51)
--- NOTE | 2017-07-23 15:53 | ECHRPT ---
Indication: CVA/ TIA CONCLUSIONS Normal left ventricular size. The left ventricular systolic function is severely reduced with an est imated ejection fraction in the range of 30-35%. Wall thickness is normal. There is diffuse global hypokinesis with distinct regional wall motion abnormalities. There is abnormal (paradoxical) septal motion consistent with LBBB. This study was not technically sufficient to allow for evaluation of left ventricular diastolic func tionThe right ventricle is mildly dilated. The left atrial size is moderately dilated. The right atrial size is moderately dilated. The interatrial septum not well visualized. The aortic root and proximal ascending aorta are not well visualized. [id number] mitral valve regurgitation. Mild thickening of the aortic valve leaflets. Diffuse calcification of the aortic valve. Mild aortic valve regurgitation. Moderate aortic valve stenosis. There is mild tricuspid valve regurgitation. There is estimated mild pulmonary hypertension present (range 40-50 mmHg). Trivial pulmonary valve regurgitation. No pulmonary stenosis. The inferior vena cava was not well visualized. BP: 142 / 91 HR: 108 Rhythm: Sinus, PVCs MEASUREMENTS (Male / Female) Normal Values Technical Quality:Technically difficult study 2D ECHO LV Diastolic Diameter PLAX 4.7 cm 4.2 - 5.9 / 3.9 - 5.3 cm LV Systolic Diameter PLAX 4.3 cm IVS Diastolic Thickness 0.9 cm 0.6 - 1.0 / 0.6 - 0.9 cm LVPW Diastolic Thickness 0.9 cm 0.6 - 1.0 / 0.6 - 0.9 cm LV Relative Wall Thickness 0.4 LVOT Diameter 2.1 cm Aortic Root Diameter 2.8 cm LA Systolic Diameter LX 4.3 cm 3.0 - 4.0 / 2.7 - 3.8 cm DOPPLER AV Peak Velocity 251.0 cm/s AV Peak Gradient 25.2 mmHg AV Mean Gradient 15.0 mmHg AV Velocity Time Integral 58.9 cm AI Peak Velocity 280.7 cm/s AI Peak Gradient 31.5 mmHg AI Pressure Half Time 303.0 ms LVOT Peak Velocity 44.4 cm/s LVOT Peak Gradient 0.8 mmHg LVOT Velocity Time Integral 10.7 cm AV Area Cont Eq vti 0.6 cm AV Area Cont Eq pk 0.6 cm Mitral E Point Velocity 105.0 cm/s LV E' Lateral Velocity 13.3 cm/s Mitral E to LV E' Lateral Ratio 7.9 LV E' Septal Velocity 6.8 cm/s Mitral E to LV E' Septal Ratio 15.4 TR Peak Velocity 308.0 cm/s TR Peak Gradient 37.9 mmHg PV Peak Velocity 89.5 cm/s PV Peak Gradient 3.2 mmHg FINDINGS LEFT VENTRICLE Normal left ventricular size. The left ventricular systolic function is severely reduced with an est imated ejection fraction in the range of 30-35%. Wall thickness is normal. There is diffuse global hypokinesis with distinct regional wall motion abnormalities. There is abnormal (paradoxical) septal motion consistent with LBBB. This study was not technically sufficient to allow for evaluation of left ventricular diastolic func tion RIGHT VENTRICLE The right ventricle is mildly dilated. LEFT ATRIUM The left atrial size is moderately dilated. RIGHT ATRIUM The right atrial size is moderately dilated. ATRIAL SEPTUM The interatrial septum not well visualized. AORTA The aortic root and proximal ascending aorta are not well visualized. MITRAL VALVE Structurally normal mitral valve. [id number] mitral valve regurgitation. AORTIC VALVE Mild thickening of the aortic valve leaflets. Diffuse calcification of the aortic valve. Mild aortic valve regurgitation. Moderate aortic valve stenosis. TRICUSPID VALVE Structurally normal tricuspid valve. There is mild tricuspid valve regurgitation. There is estimated mild pulmonary hypertension present (range 40-50 mmHg). PULMONARY VALVE Trivial pulmonary valve regurgitation. No pulmonary stenosis. VESSELS The inferior vena cava was not well visualized. PERICARDIUM No pericardial effusion. Gerald Denney MD (Electronically Signed) Final Date:23 July 2017 15:52
--- NOTE | 2017-07-23 17:19 | RADRPT ---
EXAM DATE/TIME: 07/23/2017 16:39 [facility] COMPARISON: No previous studies available for comparison. INDICATIONS : Altered mental status. MEDICAL HISTORY : Stroke Hypertension. Dementia. SURGICAL HISTORY : CABG Cleared by rad. ENCOUNTER: Initial ACUITY: 2 day PAIN SCORE: 0/10 LOCATION: head Please note a normal MRA of the brain does not entirely exclude the possibility of a small aneurysm, nor the possibility of distal intracranial vessel disease. TECHNIQUE: 3D time of flight MRA was performed. Source images, multiplanar STS MIP, and 3D volume MIP reconstru ctions were reviewed. FINDINGS: There is excellent visualization of the major intracranial arteries out to the second-order branch ve ssels. There is no evidence for aneurysm, vessel truncation or stenosis, and no evidence for vascula r malformation. There is motion artifact mimicking stenoses at the level of the cavernous carotids an d upper basilar. CONCLUSION: Unremarkable study Lio Méndez MD on July 23, 2017 at 17:15 Board Certified Radiologist. This report was verified electronically.
--- NOTE | 2017-07-23 17:40 | RADRPT ---
EXAM DATE/TIME: 07/23/2017 16:39 [facility] COMPARISON: MRI CERVICAL SPINE W/O CONTRAST, July 23, 2017, 16:39. INDICATIONS : Altered mental status. MEDICAL HISTORY : Hypertension. Gastroesophageal reflux disease. Stroke SURGICAL HISTORY : CABG Cleared by rad. ENCOUNTER: Initial ACUITY: 2 day PAIN SCORE: 0/10 LOCATION: head TECHNIQUE: Multiplanar, multisequence MRI of the brain was performed without contrast. FINDINGS: There appears to be significant canal stenosis at the craniovertebral junction which may be mainly re lated to arthritic changes at the atlantoaxial articulation. In addition the stenosis, there appears to be some offset of the canal. Traumatic injury is not entirely excluded and correlation with thin s ection CT of the skull base and cervical spine may be beneficial if clinically indicated. Intracranially, the ventricles are symmetric and normal. No abnormal extra-axial fluid accumulation, mass or hemorrhage is identified. There is no restriction of diffusion to suggest acute ischemic insu lt. CONCLUSION: Abnormal appearance of the craniovertebral junction. Intracranial contents are nonacute in appearance. Lio Méndez MD on July 23, 2017 at 17:31 Board Certified Radiologist. This report was verified electronically.
[2017-07-23] MEDS: CIPROFLOXACIN 400 MG PREMIX 200 ML IV SCH (17:42)
[2017-07-23] MEDS: LACTOBACILLUS ACIDOPHILUS TAB PO SCH (20:35)
[2017-07-23] MEDS: DOCUSATE SODIUM 100 MG CAP PO SCH (20:36)
[2017-07-23] MEDS: ZIPRASIDONE HCL 20 MG CAP PO SCH (20:36)
[2017-07-23] MEDS: ATORVASTATIN 20 MG TAB PO SCH (20:36)
--- NOTE | 2017-07-23 20:52 | MG ---
cc: ANA CHRISTIANSON MD Lab No: [id number] Date: 07/22/17 Age: 89 Sex: M Race: DATE OF 1925 89 years old November 10, 2011 45, well. REFERRING PHYSICIAN Dr. Wheatley Awake with photic stimulation only. CT negative. An 89-year-old man with change in baseline mentation, less responsive, agitated, combative, right facial droop, history of urinary retention, dementia, bypass surgery, stroke, residual weakness of the left upper/lower extremity, hypotension. Zyloprim Lasix, Aspirin Namenda Lipitor Cymbalta Antibiotics and others DESCRIPTION OF RECORD The patient has a 6 Hz rhythm, 20-40 microvolts. A lot of artifact in the frontal olivera. EKG is totally artifactual, cannot be interpreted. No epileptiform features are noted, just some mild slowing. Photic stimulation with minimal driving response, more artifact. IMPRESSION Abnormal EEG due to some mild background slowing likely due to non-encephalopathic process versus dementia. No epileptiform features. Ana Christianson MD DF/ /8:16 PM /8:45 PM
[2017-07-23 23:18] LABS: HEMATOCRIT 41.1 % (39.0-51.0); MEAN CELL VOLUME 96.4 FL (80.0-100.0); MEAN CORPUSCULAR HEMOGLOBIN 31.9 PG (27.0-34.0); PLATELET COUNT 297 TH/MM3 (150-450); RED BLOOD COUNT 4.26 MIL/MM3 (4.50-5.90); RED CELL DISTRIBUTION WIDTH 15.9 % (11.6-17.2); REVIEW FLAG FINAL; WHITE BLOOD COUNT 8.8 TH/MM3 (4.0-11.0)
[2017-07-23 23:24] LABS: APTT (PATIENT) 54.8 SEC (24.3-30.1); PROTHROMBIN TIME - PATIENT 11.4 SEC (9.8-11.6)
[2017-07-24] VITALS (23 sets, daily range): BP systolic 111–160; BP diastolic 64–89; PULSE 5–89; RESP 18–20; TEMP 97.8–98.2; O2SAT 96–98
[2017-07-24] MEDS: RESP: ALBUTEROL 2.5 MG/IPRATROPIUM 0.5 MG NEB (SCH) INH ×4 (04:00→19:27)
[2017-07-24] MEDS: HEPARIN-D5W 25,000 U/250 ML 250 ML IV PRN (04:19)
[2017-07-24] MEDS: CIPROFLOXACIN 400 MG PREMIX 200 ML IV SCH ×2 (06:09→18:06)
--- NOTE | 2017-07-24 06:50 | HHI.PR ---
Review/Management Diagnosis/Plan: (1) CVA, old, hemiparesis ICD Codes: I69.359 - Hemiplegia and hemiparesis following cerebral infarction affecting unspecified side Status: Chronic Plan: probably 2/2 uti r/o new infarct/sz recs eeg-mild slowing mental status stable mri brain- no acute stroke; abnormal cspine- await radiology interpretation; may need nsx eval cardio being consulted by medical for mild trop elevation d/c planning back to his longterm follow exam (2) UTI (urinary tract infection) ICD Codes: N39.0 - Urinary tract infection, site not specified Status: Acute (3) Altered mental status ICD Codes: R41.82 - Altered mental status, unspecified Status: Chronic (4) Urinary tract infection ICD Codes: N39.0 - Urinary tract infection, site not specified Status: Acute Subjective Subjective Comments No acute events reported No headache No chest pain No dyspnea Active Medications Current Medications Medications (Trade) Dose Ordered Sig/Alejandra Route Start Time Stop Time Status Last Admin Heparin Sodium/ Dextrose 250 ml @ 11.4 mls/hr [id number] PRN IV 07/23/17 06:40 07/24/17 04:19 (NS Flush) 2 ml UNSCH PRN IV FLUSH 07/23/17 07:00 (NS Flush) 2 ml BID IV FLUSH 07/23/17 09:00 07/23/17 20:36 (Narcan Inj) 0.4 mg UNSCH PRN IV 07/23/17 07:00 Ciprofloxacin/ Dextrose 200 ml @ 200 mls/hr Q12H IV 07/23/17 18:00 07/24/17 06:09 (Zyloprim) 100 mg BID PO 07/24/17 09:00 (Aspirin) 325 mg DAILY PO 07/24/17 09:00 (Lipitor) 20 mg HS PO 07/23/17 21:00 07/23/17 20:36 (Colace) 100 mg BID PO 07/23/17 21:00 07/23/17 20:36 (Cymbalta Dr) 60 mg DAILY PO 07/23/17 11:00 07/23/17 14:56 (Lasix) 40 mg DAILY PO 07/24/17 09:00 (Neurontin) 100 mg TID PO 07/23/17 13:00 8/29/17 17:41 (Duoneb Neb) 1 ampule Q6HR NEB INH 07/23/17 16:00 07/23/17 19:28 (Lactinex) 1 tab BID PO 07/23/17 21:00 07/23/17 20:35 (Milk Of Magnesia Liq) 30 ml Q12HR PRN PO 07/23/17 11:00 (Namenda) 5 mg DAILY PO 07/24/17 09:00 (Miralax) 17 gm DAILY PO 07/24/17 09:00 (KCl) 10 meq DAILY PO 07/24/17 09:00 (Aldactone) 25 mg DAILY PO 07/24/17 09:00 (Geodon) 20 mg BID PO 07/23/17 21:00 07/23/17 20:36 Allergies Allergies Coded Allergies No Known Allergies (Unverified07/23/17) Review of Systems All other ROS: ROS reviewed as documented in chart Exam I&O / VS Vital Signs Date Time Temp Pulse Resp B/P (MAP) Pulse Ox O2 Delivery O2 Flow Rate FiO2 07/24/17 05:00 60 07/24/17 04:00 98.1 5 20 139/76 (97) 97 07/24/17 04:00 57 07/24/17 03:00 60 07/24/17 02:00 62 07/24/17 01:00 60 07/24/17 00:00 57 07/23/17 23:53 97.7 61 18 116/67 (83) 96 07/23/17 23:00 61 07/23/17 22:00 52 07/23/17 21:00 65 07/23/17 20:00 90 07/23/17 20:00 98.0 90 16 155/90 (111) 98 07/23/17 19:00 89 07/23/17 18:00 78 07/23/17 17:00 65 07/23/17 15:41 97.2 63 18 166/96 (119) 100 07/23/17 15:00 78 07/23/17 14:00 72 07/23/17 13:00 67 07/23/17 12:27 55 07/23/17 12:00 98.5 67 19 168/85 (112) 100 07/23/17 11:45 98 07/23/17 11:00 65 18 143/76 (98) 96 Nasal Cannula 2.00 07/23/17 10:00 70 15 135/88 (104) 99 Nasal Cannula 2.00 07/23/17 08:00 97 Nasal Cannula 2.00 07/23/17 08:00 72 15 142/70 (94) 97 Nasal Cannula 2.00 07/23/17 07:00 79 22 132/60 (84) 97 Nasal Cannula 2.00 Neurologic: Alert Psychiatric: Cooperative Exam Comments ox 1. unable to give date or exact place. calm, pleasant, inattentive but follows, reduced hearing bilterally, dysarthric speech, face sym grossly, mild left hemiparesis 3-4/5 leg weaker then arm, mild left sided hyper-reflexia, no clonus, planterflexor, withdraws to pin, further sensory/cerebellar/gait limited 2/2 mental status, fall risk Objective Micro and Labs Laboratory Tests Test 07/23/17 09:30 07/23/17 22:51 Total Creatine Kinase 60 29 Troponin I 0.11 0.12 White Blood Count 8.8 Red Blood Count 4.26 Hemoglobin 13.6 Hematocrit 41.1 Mean Corpuscular Volume 96.4 Mean Corpuscular Hemoglobin 31.9 Mean Corpuscular Hemoglobin Concent 33.0 Red Cell Distribution Width 15.9 Platelet Count 297 Mean Platelet Volume 8.4 Prothrombin Time 11.4 Prothromb Time International Ratio 1.0 Activated Partial Thromboplast Time 54.8 Date/Time Source Procedure Growth Status 07/23/17 03:50 Blood Peripheral Aerobic Blood Culture Pending Received 07/23/17 03:50 Blood Peripheral Anaerobic Blood Culture Pending Received Problem Qualifiers (1) Altered mental status: Qualified Codes: R40.0 - Somnolence (2) Urinary tract infection: Qualified Codes: T83.511A - Infection and inflammatory reaction due to indwelling urethral catheter, initial encounter; N39.0 - Urinary tract infection , site not specified Yordy Wheatley MD Jul 24, 2017 06:50
[2017-07-24 07:14] LABS: APTT (PATIENT) 63.3 SEC (24.3-30.1)
[2017-07-24 07:29] LABS: AUTOMATED NEUTROPHIL # 6.2 TH/MM3 (1.8-7.7); BASOPHIL # 0.1 TH/MM3 (0-0.2); BASOPHIL % 0.9 % (0.0-2.0); EOSINOPHIL # 0.8 TH/MM3 (0-0.4); EOSINOPHIL % 7.1 % (0.0-4.0); HEMATOCRIT 39.9 % (39.0-51.0); HEMO FLAGS DIFF FINAL; LYMPH % 28.5 % (9.0-44.0); LYMPHOCYTE # 3.4 TH/MM3 (1.0-4.8); MEAN CELL VOLUME 97.1 FL (80.0-100.0); MEAN CORPUSCULAR HEMOGLOBIN 31.2 PG (27.0-34.0); MEAN CORPUSCULAR HGB CONC 32.1 % (32.0-36.0); NEUT % 52.5 % (16.0-70.0); PLATELET COUNT 264 TH/MM3 (150-450); RED BLOOD COUNT 4.11 MIL/MM3 (4.50-5.90); RED CELL DISTRIBUTION WIDTH 15.8 % (11.6-17.2); WHITE BLOOD COUNT 11.8 TH/MM3 (4.0-11.0)
[2017-07-24 07:37] LABS: ALT (GPT) 9 U/L (12-78); ANION GAP 7 MEQ/L (5-15); AST (GOT) 12 U/L (15-37); BICARBONATE 28.7 MEQ/L (21.0-32.0); BLOOD UREA NITROGEN 10 MG/DL (7-18); CHLORIDE 105 MEQ/L (98-107); GLOMERULAR FILTRATION RATE 114 ML/MIN (>89); POTASSIUM 4.3 MEQ/L (3.5-5.1); SODIUM (NA) 141 MEQ/L (136-145)
[2017-07-24 07:45] LABS: ALKALINE PHOSPHATASE 122 U/L (45-117); TOTAL BILIRUBIN ADULT 0.5 MG/DL (0.2-1.0)
--- NOTE | 2017-07-24 08:26 | HHI.PR ---
Subjective Remarks The patient is an 89 year old male who presents to the [facility] emergency department with a history of change in baseline mentation that was first noticed by the shelter staff at approximate 2 AM. The patient has a history of urinary retention requiring IN and out catheterization. They reportedly in and out catheterized him at approximate 2 AM when they noticed that he was less responsive. The patient has a history of dementia and normally becomes agitated, slightly combative when they attempted to catheterize him, however he did not seem to mind the procedure at all. They also reported that at 3 PM yesterday they noticed that he had a right facial droop. The patient has no other new extremity weakness. The patient does have a history of a left sided affecting cerebrovascular accident. The patient on arrival is awake and alert and requesting ice water. The patient denies any acute complaints. HIS REVIEW OF systems, the patient denies any known recent fevers,cough, congestion, neck pain, chest pain, shortness of breath, abdominal pain, vomiting, diarrhea, urinary symptoms, or new neurologic symptoms. According to the ambulance service that brought the patient and the patient was recently treated for both pneumonia and a urinary tract infection earlier earlier in June. The patient intermittently answers my questions, I am unsure whether this is related to the patient's history of dementia, his history of altered mentation, or his hearing problem. Patient did not follow any commands for me when I was in the room his nurse stated that he followed some for her earlier 07-24 patient looks uncomfortable will make pain medications available dw RN AND PT Objective Vitals Vital Signs Date Time Temp Pulse Resp B/P (MAP) Pulse Ox O2 Delivery O2 Flow Rate FiO2 07/24/17 05:00 60 07/24/17 04:00 98.1 5 20 139/76 (97) 97 07/24/17 04:00 57 07/24/17 03:00 60 07/24/17 02:00 62 07/24/17 01:00 60 07/24/17 00:00 57 07/23/17 23:53 97.7 61 18 116/67 (83) 96 07/23/17 23:00 61 07/23/17 22:00 52 07/23/17 21:00 65 07/23/17 20:00 90 07/23/17 20:00 98.0 90 16 155/90 (111) 98 07/23/17 19:00 89 07/23/17 18:00 78 07/23/17 17:00 65 07/23/17 15:41 97.2 63 18 166/96 (119) 100 07/23/17 15:00 78 07/23/17 14:00 72 07/23/17 13:00 67 07/23/17 12:27 55 07/23/17 12:00 98.5 67 19 168/85 (112) 100 07/23/17 11:45 98 07/23/17 11:00 65 18 143/76 (98) 96 Nasal Cannula 2.00 07/23/17 10:00 70 15 135/88 (104) 99 Nasal Cannula 2.00 I/O 07/23/17 07/23/17 07/23/17 07/24/17 07/24/17 07/24/17 07:00 15:00 23:00 07:00 15:00 23:00 Intake Total 250 ml 240 ml 252 ml Balance 250 ml 240 ml 252 ml Intake Oral 240 ml 120 ml IV Total 250 ml 132 ml # Voids 1 Result Diagram: 07/24/17 0653 07/24/17 0633 Other Results Laboratory Tests Test 07/23/17 03:50 07/23/17 09:30 07/23/17 22:51 07/24/17 06:25 White Blood Count 8.5 TH/MM3 8.8 TH/MM3 Red Blood Count 4.28 MIL/MM3 4.26 MIL/MM3 Hemoglobin 13.3 GM/DL 13.6 GM/DL Hematocrit 41.6 % 41.1 % Mean Corpuscular Volume 97.2 FL 96.4 FL Mean Corpuscular Hemoglobin 31.1 PG 31.9 PG Mean Corpuscular Hemoglobin Concent 32.0 % 33.0 % Red Cell Distribution Width 15.5 % 15.9 % Platelet Count 325 TH/MM3 297 TH/MM3 Mean Platelet Volume 7.7 FL 8.4 FL Neutrophils (%) (Auto) 52.4 % Lymphocytes (%) (Auto) 30.4 % Monocytes (%) (Auto) 6.8 % Eosinophils (%) (Auto) 9.7 % Basophils (%) (Auto) 0.7 % Neutrophils # (Auto) 4.5 TH/MM3 Lymphocytes # (Auto) 2.6 TH/MM3 Monocytes # (Auto) 0.6 TH/MM3 Eosinophils # (Auto) 0.8 TH/MM3 Basophils # (Auto) 0.1 TH/MM3 CBC Comment DIFF FINAL Differential Comment Prothrombin Time 11.2 SEC 11.4 SEC Prothromb Time International Ratio 1.0 RATIO 1.0 RATIO Activated Partial Thromboplast Time 27.3 SEC 54.8 SEC 63.3 SEC Blood Urea Nitrogen 12 MG/DL Creatinine 0.83 MG/DL Random Glucose 95 MG/DL Total Protein 7.0 GM/DL Albumin 2.6 GM/DL Calcium Level 8.7 MG/DL Magnesium Level 2.2 MG/DL Alkaline Phosphatase 126 U/L Aspartate Amino Transf (AST/SGOT) 19 U/L Alanine Aminotransferase (ALT/SGPT) 11 U/L Total Bilirubin 0.5 MG/DL Sodium Level 144 MEQ/L Potassium Level 4.7 MEQ/L Chloride Level 107 MEQ/L Carbon Dioxide Level 31.5 MEQ/L Anion Gap 6 MEQ/L Estimat Glomerular Filtration Rate 87 ML/MIN Lactic Acid Level 1.3 mmol/L Total Creatine Kinase 52 U/L 60 U/L 29 U/L Troponin I 0.12 NG/ML 0.11 NG/ML 0.12 NG/ML C-Reactive Protein 1.39 MG/DL B-Type Natriuretic Peptide 78 PG/ML Test 07/24/17 06:33 07/24/17 06:53 Blood Urea Nitrogen 10 MG/DL Creatinine 0.66 MG/DL Random Glucose 84 MG/DL Total Protein 6.6 GM/DL Albumin 2.4 GM/DL Calcium Level 8.5 MG/DL Phosphorus Level 3.1 MG/DL Magnesium Level 2.0 MG/DL Alkaline Phosphatase 122 U/L Aspartate Amino Transf (AST/SGOT) 12 U/L Alanine Aminotransferase (ALT/SGPT) 9 U/L Total Bilirubin 0.5 MG/DL Sodium Level 141 MEQ/L Potassium Level 4.3 MEQ/L Chloride Level 105 MEQ/L Carbon Dioxide Level 28.7 MEQ/L Anion Gap 7 MEQ/L Estimat Glomerular Filtration Rate 114 ML/MIN Troponin I 0.11 NG/ML Free Thyroxine 1.20 NG/DL Thyroid Stimulating Hormone 3rd Gen 0.402 uIU/ML White Blood Count 11.8 TH/MM3 Red Blood Count 4.11 MIL/MM3 Hemoglobin 12.8 GM/DL Hematocrit 39.9 % Mean Corpuscular Volume 97.1 FL Mean Corpuscular Hemoglobin 31.2 PG Mean Corpuscular Hemoglobin Concent 32.1 % Red Cell Distribution Width 15.8 % Platelet Count 264 TH/MM3 Mean Platelet Volume 8.9 FL Neutrophils (%) (Auto) 52.5 % Lymphocytes (%) (Auto) 28.5 % Monocytes (%) (Auto) 11.0 % Eosinophils (%) (Auto) 7.1 % Basophils (%) (Auto) 0.9 % Neutrophils # (Auto) 6.2 TH/MM3 Lymphocytes # (Auto) 3.4 TH/MM3 Monocytes # (Auto) 1.3 TH/MM3 Eosinophils # (Auto) 0.8 TH/MM3 Basophils # (Auto) 0.1 TH/MM3 CBC Comment DIFF FINAL Differential Comment Imaging Last Impressions Head CT 07/23/[id number] Signed Impressions: Service Date/Time: Sunday, July 23, 2017 04:20 - CONCLUSION: 1. No acute intracranial abnormality is identified. 2. Possible spinal canal narrowing at the C1-C2 level. Lio Palacios MD Chest X-Ray [id number]/23/17343 Signed Impressions: Service Date/Time: Sunday, July 23, 2017 03:57 - CONCLUSION: Underinflation. However, no acute cardiopulmonary abnormality is appreciated. Lio Palacios MD Head Magnetic Resonance Angiography 07/23/17 Signed Impressions: Service Date/Time: Sunday, July 23, 2017 16:39 - CONCLUSION: Unremarkable study Lio Méndez MD Carotid Artery Ultrasound 07/23/17 Signed Impressions: Service Date/Time: Sunday, July 23, 2017 08:03 - CONCLUSION: No evidence of flow-limiting carotid stenosis. Lio Méndez MD Brain MRI 07/23/17 Signed Impressions: Service Date/Time: Sunday, July 23, 2017 16:39 - CONCLUSION: Abnormal appearance of the craniovertebral junction. Intracranial contents are nonacute in appearance. Lio Méndez MD Objective Remarks GENERAL: This is a well-nourished, well-developed patient, in no apparent distress. Currently nonverbal and did not follow any commands did not answer any questions SKIN: No rashes, ecchymoses or lesions. Cool and dry. Right lower extremity has a wound that stressed HEAD: Atraumatic. Normocephalic. No temporal or scalp tenderness. EYES: Pupils equal round and reactive. Extraocular motions intact. No scleral icterus. No injection or drainage. ENT: Nose without bleeding, purulent drainage or septal hematoma. Throat without erythema, tonsillar hypertrophy or exudate. Uvula midline. Airway patent. NECK: Trachea midline. No JVD or lymphadenopathy. Supple, nontender, no meningeal signs. CARDIOVASCULAR: Regular rate and rhythm without murmurs, gallops, or rubs. S1 and S2 no S3 or S4 RESPIRATORY: Clear to auscultation. Breath sounds equal bilaterally. No wheezes , rales, or rhonchi. GASTROINTESTINAL: Abdomen soft, non-tender, nondistended. No hepato-splenomegaly , or palpable masses. No guarding. MUSCULOSKELETAL: Extremities without clubbing, cyanosis, or edema. No joint tenderness, effusion, or edema noted. No calf tenderness. Negative Homans sign bilaterally. Some edema in bilateral lower extremities. And some swelling in the right lower leg NEUROLOGICAL: Awake and alert. Not able to assess cranial nerves II through XII since patient is not following any commands. Motor and sensory grossly are limited. Generalized weakness upper extremity and lower extremity muscle aphasic and nonverbal at this moment Procedures EEG 07-23 IMPRESSION Abnormal EEG due to some mild background slowing likely due to non-encephalopathic process versus dementia. No epileptiform features. Medications and IVs Current Medications Ciprofloxacin/ Dextrose 200 ml @ 200 mls/hr ONCE ONCE IV Last administered on 07/23/17 05:51; Start 07/23/17 at 05:00; Stop 07/23/17 at 06:16; Status DC Nitroglycerin (Nitroglycerin 2% Oint) 1 inch ONCE ONCE TOPICAL ; Start at 05:15; Stop 07/23/17 at 05:16; Status DC Aspirin (Aspirin Chew) 324 mg ONCE ONCE CHEW Last administered on 07/23/17 05 :15; Start 07/23/17 at 05:15; Stop 07/23/17 at 05:16; Status DC Sodium Chloride 250 ml @ 250 mls/hr BOLUS ONCE IV Last administered on 06:00; Start 07/23/17 at 06:00; Stop 07/23/17 at 06:59; Status DC Heparin Sodium/ Dextrose 250 ml @ 11.4 mls/hr [id number] PRN IV Coagulation management Last administered on 07/24/17 04:19; Start 07/23/17 at 06:40 Sodium Chloride (NS Flush) 2 ml UNSCH PRN IV FLUSH FLUSH AFTER USING IV ACCESS ; Start 07/23/17 at 07:00 Sodium Chloride (NS Flush) 2 ml BID IV FLUSH Last administered on 07/23/17 20: 36; Start 07/23/17 at 09:00 Naloxone HCl (Narcan Inj) 0.4 mg UNSCH PRN IV SEE LABEL COMMENTS; Start at 07:00 Ciprofloxacin/ Dextrose 200 ml @ 200 mls/hr Q12H IV Last administered on 06:09; Start 07/23/17 at 18:00 Allopurinol (Zyloprim) 100 mg BID PO ; Start 07/24/17 at 09:00 Aspirin (Aspirin) 325 mg DAILY PO ; Start 07/24/17 at 09:00 Atorvastatin Calcium (Lipitor) 20 mg HS PO Last administered on 07/23/17 20:36 ; Start 07/23/17 at 21:00 Docusate Sodium (Colace) 100 mg BID PO Last administered on 07/23/17 20:36; Start 07/23/17 at 21:00 Duloxetine HCl (Cymbalta Dr) 60 mg DAILY PO Last administered on 07/23/17 14: 56; Start 07/23/17 at 11:00 Furosemide (Lasix) 40 mg DAILY PO ; Start 07/24/17 at 09:00 Gabapentin (Neurontin) 100 mg TID PO Last administered on 07/23/17 17:41; Start 07/23/17 at 13:00 Albuterol/ Ipratropium (Duoneb Neb) 1 ampule Q6HR NEB INH Last administered on 07/24/17 08:11; Start 07/23/17 at 16:00 Lactobacillus Acidophilus (Lactinex) 1 tab BID PO Last administered on 20:35; Start 07/23/17 at 21:00 Magnesium Hydroxide (Milk Of Magnesia Liq) 30 ml Q12HR PRN PO CONSTIPATION; Start 07/23/17 at 11:00 Memantine (Namenda) 5 mg DAILY PO ; Start 07/24/17 at 09:00 Polyethylene Glycol (Miralax) 17 gm DAILY PO ; Start 07/24/17 at 09:00 Potassium Chloride (KCl) 10 meq DAILY PO ; Start 07/24/17 at 09:00 Spironolactone (Aldactone) 25 mg DAILY PO ; Start 07/24/17 at 09:00 Ziprasidone (Geodon) 20 mg BID PO Last administered on 07/23/17t 20:36; Start 07/23/17 at 21:00 Atropine Sulfate (Atropine Inj) 1 mg STK-MED ONCE .ROUTE ; Start 07/23/17 at 15: 51; Stop 07/23/17 at 15:52; Status DC Epinephrine HCl (EPINEPHrine (1:10,000) INJ) 1 mg STK-MED ONCE .ROUTE ; Start at 15:51; Stop 07/23/17 at 15:52; Status DC Urinary Catheter: No Vascular Central Line Catheter: No A/P Problem List: (1) UTI (urinary tract infection) ICD Code: N39.0 - Urinary tract infection, site not specified Status: Acute (2) CVA, old, hemiparesis ICD Code: I69.359 - Hemiplegia and hemiparesis following cerebral infarction affecting unspecified side Status: Chronic (3) Hemiplegia following CVA (cerebrovascular accident) ICD Code: I69.359 - Hemiplegia and hemiparesis following cerebral infarction affecting unspecified side (4) Elevated troponin ICD Code: R74.8 - Abnormal levels of other serum enzymes Status: Acute (5) Altered mental status ICD Code: R41.82 - Altered mental status, unspecified Status: Acute (6) Dysrhythmia, cardiac ICD Code: I49.9 - Cardiac arrhythmia, unspecified Status: Acute (7) Urinary tract infection ICD Code: N39.0 - Urinary tract infection, site not specified Status: Acute Assessment and Plan Abnormal cardiac rhythm. With elevated troponins consult cardiology get echo and troponins-cardiology does not think it's a NST elevation [place] Altered mental status possibly due to UTI versus CVA patient has chronic Chow catheters or urinary catheters inserted and removed multiple times a day History of CVA History of dementia/advanced dementia Chronic anticoagulation with aspirin Confusion Urinary tract continue on current antibiotics Hypertension on medications hyperlipidemia on statin Chronic pain on methadone Chronic anxiety depression dementia continue home medications Avoid sedating medication Chronic neurogenic bladder versus bladder outlet obstruction with chronic straight catheter multiple times a day As been seen by neurology. We'll consult cardiology and patient will be followed throughout the admission. Having echo Physical therapy and occupational therapy to eval and treat We'll need to go back to SNF at discharge Restart pain control DW RN AND PT Problem Qualifiers (1) Altered mental status: Qualified Codes: R40.0 - Somnolence (2) Dysrhythmia, cardiac: Qualified Codes: I49.8 - Other specified cardiac arrhythmias (3) Urinary tract infection: Qualified Codes: T83.511A - Infection and inflammatory reaction due to indwelling urethral catheter, initial encounter; N39.0 - Urinary tract infection , site not specified James Aldana DO Jul 24, 2017 08:26
[2017-07-24] MEDS ORDERED: ACETAMINOPHEN 325 MG TAB PO PRN (08:30)
[2017-07-24] MEDS ORDERED: oxyCODONE/ACETAMINOPHEN 10 MG/325 MG TAB PO PRN (08:30)
[2017-07-24] MEDS ORDERED: MORPHINE SULFATE 4 MG/ML INJ IV PRN ×2 (08:30)
[2017-07-24] MEDS ORDERED: oxyCODONE/ACETAMINOPHEN 5 MG/325 MG TAB PO PRN (08:30)
[2017-07-24] MEDS ORDERED: NALOXONE HCL 0.4 MG/ML AMP IV PRN (08:30)
[2017-07-24] MEDS ORDERED: PILL SPLITTER OTHER PRN (08:45)
[2017-07-24] MEDS: SODIUM CHLORIDE 0.9% FLUSH 10 ML FLUSH IV FLUSH SCH ×2 (09:00→20:40)
[2017-07-24] MEDS ORDERED: ASPIRIN 325 MG TAB PO SCH (09:00)
[2017-07-24] MEDS: DULoxetine HCl DR 60 MG CAP PO SCH (09:45)
[2017-07-24] MEDS: POLYETHYLENE GLYCOL 17 GM PKG PO SCH (09:45)
[2017-07-24] MEDS: GABAPENTIN 100 MG CAP PO SCH ×3 (09:46→18:00)
[2017-07-24] MEDS: ALLOPURINOL 100 MG TAB PO SCH ×2 (09:46→20:40)
[2017-07-24] MEDS: POTASSIUM CHLORIDE 10 MEQ CONTROLLED RELEASE TAB PO SCH (09:46)
[2017-07-24] MEDS: ZIPRASIDONE HCL 20 MG CAP PO SCH ×2 (09:46→20:40)
[2017-07-24] MEDS: LACTOBACILLUS ACIDOPHILUS TAB PO SCH ×2 (09:47→20:40)
[2017-07-24] MEDS: MEMANTINE HCL 5 MG TAB PO SCH (09:47)
[2017-07-24] MEDS: FUROSEMIDE 40 MG TAB PO SCH (09:47)
[2017-07-24] MEDS: DOCUSATE SODIUM 100 MG CAP PO SCH ×2 (09:47→20:40)
[2017-07-24] MEDS: METHADONE HCL 10 MG TAB PO SCH (09:47)
[2017-07-24] MEDS: SPIRONOLACTONE 25 MG TAB PO SCH (09:47)
[2017-07-24 10:19] LABS: HEMOGLOBIN A1b 0.9 %; HEMOGLOBIN Ao 84.9 %; HEMOGLOBIN P3 5.4 %
--- NOTE | 2017-07-24 11:17 | PD.CARD.PN ---
Subjective Subjective Remarks no cardiac complaints Objective Medications Current Medications Medications (Trade) Dose Ordered Sig/Alejandra Route Start Time Stop Time Status Last Admin Heparin Sodium/ Dextrose 250 ml @ 11.4 mls/hr [id number] PRN IV 07/23/17 06:40 07/24/17 04:19 (NS Flush) 2 ml UNSCH PRN IV FLUSH 07/23/17 07:00 (NS Flush) 2 ml BID IV FLUSH 07/23/17 09:00 07/23/17 20:36 (Narcan Inj) 0.4 mg UNSCH PRN IV 07/23/17 07:00 Ciprofloxacin/ Dextrose 200 ml @ 200 mls/hr Q12H IV 07/23/17 18:00 07/24/17 06:09 (Zyloprim) 100 mg BID PO 07/24/17 09:00 07/24/17 09:46 (Aspirin) 325 mg DAILY PO 07/24/17 09:00 07/24/17 09:46 (Lipitor) 20 mg HS PO 07/23/17 21:00 07/23/17 20:36 (Colace) 100 mg BID PO 07/23/17 21:00 07/24/17 09:47 (Cymbalta Dr) 60 mg DAILY PO 07/23/17 11:00 07/24/17 09:45 (Lasix) 40 mg DAILY PO 07/24/17 09:00 07/24/17 09:47 (Duoneb Neb) 1 ampule Q6HR NEB INH 07/23/17 16:00 07/24/17 08:11 (Lactinex) 1 tab BID PO 07/23/17 21:00 07/24/17 09:47 (Milk Of Magnesia Liq) 30 ml Q12HR PRN PO 07/23/17 11:00 (Namenda) 5 mg DAILY PO 07/24/17 09:00 07/24/17 09:47 (Miralax) 17 gm DAILY PO 07/24/17 09:00 07/24/17 09:45 (KCl) 10 meq DAILY PO 07/24/17 09:00 07/24/17 09:46 (Aldactone) 25 mg DAILY PO 07/24/17 09:00 07/24/17 09:47 (Geodon) 20 mg BID PO 07/23/17 21:00 07/24/17 09:46 (Tylenol) 650 mg Q6H PRN PO 07/24/17 08:30 07/24/17 09:47 (Percocet 5-325 Mg) 1 tab Q6H PRN PO 07/24/17 08:30 (Percocet 10-325 Mg) 1 tab Q6H PRN PO 07/24/17 08:30 (Morphine Inj) 2 mg Q3H PRN IV 07/24/17 08:30 (Morphine Inj) 4 mg Q3H PRN IV 07/24/17 08:30 (Dolophine) 5 mg DAILY PO 07/24/17 09:00 07/24/17 09:47 (Pill Splitter) 1 ea UNSCH PRN OTHER 07/24/17 08:45 (Neurontin) 200 mg TID PO 07/24/17 09:00 07/24/17 09:46 Vital Signs / I&O Vital Signs Date Time Temp Pulse Resp B/P (MAP) Pulse Ox O2 Delivery O2 Flow Rate FiO2 07/24/17 11:00 98.0 89 19 126/80 (95) 98 07/24/17 11:00 81 07/24/17 10:52 20 07/24/17 10:52 20 07/24/17 10:00 82 07/24/17 09:00 84 07/24/17 08:00 64 07/24/17 08:00 98.2 68 18 160/81 (107) 98 07/24/17 05:00 60 07/24/17 04:00 98.1 5 20 139/76 (97) 97 07/24/17 04:00 57 07/24/17 03:00 60 07/24/17 02:00 62 07/24/17 01:00 60 07/24/17 00:00 57 07/23/17 23:53 97.7 61 18 116/67 (83) 96 07/23/17 23:00 61 07/23/17 22:00 52 07/23/17 21:00 65 07/23/17 20:00 90 07/23/17 20:00 98.0 90 16 155/90 (111) 98 07/23/17 19:00 89 07/23/17 18:00 78 07/23/17 17:00 65 07/23/17 15:41 97.2 63 18 166/96 (119) 100 07/23/17 15:00 78 07/23/17 14:00 72 07/23/17 13:00 67 07/23/17 12:27 55 07/23/17 12:00 98.5 67 19 168/85 (112) 100 07/23/17 11:45 98 I/O 07/23/17 07/23/17 07/23/17 07/24/17 07/24/17 07/24/17 07:00 15:00 23:00 07:00 15:00 23:00 Intake Total 250 ml 240 ml 252 ml Balance 250 ml 240 ml 252 ml Intake Oral 240 ml 120 ml IV Total 250 ml 132 ml # Voids 1 Physical Exam Alert but confused Chest Clear CV S1 S2 irr irr No edema Laboratory Laboratory Tests Test 07/23/17 22:51 07/24/17 06:25 07/24/17 06:33 07/24/17 06:53 White Blood Count 8.8 TH/MM3 11.8 TH/MM3 Red Blood Count 4.26 MIL/MM3 4.11 MIL/MM3 Hemoglobin 13.6 GM/DL 12.8 GM/DL Hematocrit 41.1 % 39.9 % Mean Corpuscular Volume 96.4 FL 97.1 FL Mean Corpuscular Hemoglobin 31.9 PG 31.2 PG Mean Corpuscular Hemoglobin Concent 33.0 % 32.1 % Red Cell Distribution Width 15.9 % 15.8 % Platelet Count 297 TH/MM3 264 TH/MM3 Mean Platelet Volume 8.4 FL 8.9 FL Prothrombin Time 11.4 SEC Prothromb Time International Ratio 1.0 RATIO Activated Partial Thromboplast Time 54.8 SEC 63.3 SEC Total Creatine Kinase 29 U/L Troponin I 0.12 NG/ML 0.11 NG/ML Blood Urea Nitrogen 10 MG/DL Creatinine 0.66 MG/DL Random Glucose 84 MG/DL Total Protein 6.6 GM/DL Albumin 2.4 GM/DL Calcium Level 8.5 MG/DL Phosphorus Level 3.1 MG/DL Magnesium Level 2.0 MG/DL Alkaline Phosphatase 122 U/L Aspartate Amino Transf (AST/SGOT) 12 U/L Alanine Aminotransferase (ALT/SGPT) 9 U/L Total Bilirubin 0.5 MG/DL Sodium Level 141 MEQ/L Potassium Level 4.3 MEQ/L Chloride Level 105 MEQ/L Carbon Dioxide Level 28.7 MEQ/L Anion Gap 7 MEQ/L Estimat Glomerular Filtration Rate 114 ML/MIN Free Thyroxine 1.20 NG/DL Thyroid Stimulating Hormone 3rd Gen 0.402 uIU/ML Neutrophils (%) (Auto) 52.5 % Lymphocytes (%) (Auto) 28.5 % Monocytes (%) (Auto) 11.0 % Eosinophils (%) (Auto) 7.1 % Basophils (%) (Auto) 0.9 % Neutrophils # (Auto) 6.2 TH/MM3 Lymphocytes # (Auto) 3.4 TH/MM3 Monocytes # (Auto) 1.3 TH/MM3 Eosinophils # (Auto) 0.8 TH/MM3 Basophils # (Auto) 0.1 TH/MM3 CBC Comment DIFF FINAL Differential Comment Assessment and Plan Problem List: (1) CVA, old, hemiparesis ICD Codes: I69.359 - Hemiplegia and hemiparesis following cerebral infarction affecting unspecified side Status: Chronic Plan: needs anticoagulation (2) Elevated troponin ICD Codes: R74.8 - Abnormal levels of other serum enzymes Status: Acute Plan: troponin curve flat. Doubt ACS. Conservative tx (3) Coronary artery disease ICD Codes: I25.10 - Atherosclerotic heart disease of [place] coronary artery without angina pectoris Plan: no angina (4) Atrial fibrillation ICD Codes: I48.91 - Unspecified atrial fibrillation Plan: Change heparin to Eliquis - dose 5mg bid due to creat < 1.5 and weight > 60kg Assessment and Plan I am signing off, will see prn Problem Qualifiers (1) Coronary artery disease: Qualified Codes: I25.810 - Atherosclerosis of coronary artery bypass graft(s) without angina pectoris Gerald Denney MD Jul 24, 2017 11:17
--- NOTE | 2017-07-24 13:05 | RADRPT ---
EXAM DATE/TIME: 07/23/2017 16:39 [facility] COMPARISON: No previous studies available for comparison. INDICATIONS : Pain. MEDICAL HISTORY : Stroke Hypertension. SURGICAL HISTORY : CABG Cleared by rad. ENCOUNTER: Initial ACUITY: 2 day PAIN SCORE: 0/10 LOCATION: head TECHNIQUE: Multiplanar, multisequence MRI examination of the cervical spine was performed. FINDINGS: VERTEBRAE: Extensive degenerative changes are present with fusion of C3-C4 and C5-C7. ALIGNMENT: No evidence of subluxation. CORD: Normal configuration and signal. POST FOSSA: The cerebellar tonsils are normal in position. C2-C3: The thecal sac has a normal configuration. There is no evidence of disc herniation or spinal canal s tenosis. The neural foramina are patent bilaterally. C3-C4: Moderate neuroforaminal encroachment is present on the left without spinal stenosis. C4-C5: Moderate uncinate ridging is present with mild spinal stenosis. C5-C6: Moderate uncinate ridging is present with bilateral neural foramina encroachment worse on the right. Spinal stenosis is mild. C6-C7: Extensive neuroforaminal encroachment is present much worse on the left than the right. Spinal steno sis is mild. C7-T1: Large anterior osteophytes are noted. There is no posterior impression. CONCLUSION: Fusions as described above. Most significant finding is neural foramina encroachment on both the ri ght and left. James Garcia MD FACR on July 24, 2017 at 13:01 Board Certified Radiologist. This report was verified electronically.
--- NOTE | 2017-07-24 17:16 | EKG ---
Date Performed: 07/23/2017 Time Performed: 09:37:29 PTAGE: 89 years EKG: ATRIAL FIBRILLATION WITH ABERRANT CONDUCTION OR VENTRICULAR PREMATURE COMPLEXES MARKED LEFT AXIS DEVIATION LEFT BUNDLE BRANCH BLOCK Since previous tracing, no significant change noted ABNORMAL ECG PREVIOUS TRACING : 07/23/2017 04.02 DOCTOR: Corina Tavares Interpretating Date/Time 07/24/2017 17:08:51
--- NOTE | 2017-07-24 17:16 | EKG ---
Date Performed: 07/23/2017 Time Performed: 18:45:04 PTAGE: 89 years EKG: Probable atrial fibrillation with frequent PVCs or aberrant ventricular conduction. Left ax is deviation IV conduction defect Extensive infarct - age undetermined Since previous tracing, no sig nificant change noted Abnormal ECG PREVIOUS TRACING : 07/23/2017 09.37 DOCTOR: Corina Tavares Interpretating Date/Time 07/24/2017 17:09:02
[2017-07-24] MEDS: APIXABAN 5 MG TABLET PO SCH (20:40)
[2017-07-24] MEDS: ATORVASTATIN 20 MG TAB PO SCH (20:41)
[2017-07-25] VITALS (19 sets, daily range): BP systolic 94–156; BP diastolic 47–95; PULSE 55–92; RESP 16–20; TEMP 97.5–98.1; O2SAT 95–97
[2017-07-25] MEDS: CIPROFLOXACIN 400 MG PREMIX 200 ML IV SCH ×2 (05:38→17:46)
[2017-07-25] MEDS: RESP: ALBUTEROL 2.5 MG/IPRATROPIUM 0.5 MG NEB (SCH) INH ×4 (06:01→21:33)
[2017-07-25 06:51] LABS: APTT (PATIENT) 42.8 SEC (24.3-30.1)
[2017-07-25 06:54] LABS: ALT (GPT) 9 U/L (12-78); ANION GAP 8 MEQ/L (5-15); AST (GOT) 14 U/L (15-37); BICARBONATE 28.4 MEQ/L (21.0-32.0); BLOOD UREA NITROGEN 10 MG/DL (7-18); CHLORIDE 103 MEQ/L (98-107); GLOMERULAR FILTRATION RATE 120 ML/MIN (>89); MAGNESIUM 2.1 MG/DL (1.5-2.5); POTASSIUM 4.4 MEQ/L (3.5-5.1); SODIUM (NA) 139 MEQ/L (136-145)
[2017-07-25 06:55] LABS: AUTOMATED NEUTROPHIL # 4.1 TH/MM3 (1.8-7.7); BASOPHIL # 0.1 TH/MM3 (0-0.2); BASOPHIL % 0.7 % (0.0-2.0); EOSINOPHIL # 0.6 TH/MM3 (0-0.4); EOSINOPHIL % 7.7 % (0.0-4.0); HEMATOCRIT 43.5 % (39.0-51.0); HEMO FLAGS DIFF FINAL; LYMPH % 28.1 % (9.0-44.0); MEAN CELL VOLUME 96.4 FL (80.0-100.0); MEAN CORPUSCULAR HEMOGLOBIN 30.6 PG (27.0-34.0); MEAN CORPUSCULAR HGB CONC 31.8 % (32.0-36.0); MONO % 7.1 % (0.0-8.0); NEUT % 56.4 % (16.0-70.0); PLATELET COUNT 285 TH/MM3 (150-450); RED BLOOD COUNT 4.51 MIL/MM3 (4.50-5.90); RED CELL DISTRIBUTION WIDTH 15.7 % (11.6-17.2); WHITE BLOOD COUNT 7.2 TH/MM3 (4.0-11.0)
[2017-07-25 06:56] LABS: ALKALINE PHOSPHATASE 129 U/L (45-117); TOTAL BILIRUBIN ADULT 0.5 MG/DL (0.2-1.0)
--- NOTE | 2017-07-25 09:16 | HHI.PR ---
Review/Management Diagnosis/Plan: (1) CVA, old, hemiparesis ICD Codes: I69.359 - Hemiplegia and hemiparesis following cerebral infarction affecting unspecified side Status: Chronic Plan: probably 2/2 uti r/o new infarct/sz recs mri cspine- no cord compression/signal normal d/c planning back to his [facility] follow exam (2) UTI (urinary tract infection) ICD Codes: N39.0 - Urinary tract infection, site not specified Status: Acute (3) Altered mental status ICD Codes: R41.82 - Altered mental status, unspecified Status: Resolved (4) Urinary tract infection ICD Codes: N39.0 - Urinary tract infection, site not specified Status: Acute Subjective Subjective Comments No acute events reported No headache No chest pain No dyspnea Active Medications Current Medications Medications (Trade) Dose Ordered Sig/Aljeandra Route Start Time Stop Time Status Last Admin (NS Flush) 2 ml UNSCH PRN IV FLUSH 07/23/17 07:00 (NS Flush) 2 ml BID IV FLUSH 07/23/17 09:00 07/24/17 20:40 (Narcan Inj) 0.4 mg UNSCH PRN IV 07/23/17 07:00 Ciprofloxacin/ Dextrose 200 ml @ 200 mls/hr Q12H IV 07/23/17 18:00 07/25/17 05:38 (Zyloprim) 100 mg BID PO 07/24/17 09:00 07/24/17 20:40 (Lipitor) 20 mg HS PO 07/23/17 21:00 07/24/17 20:41 (Colace) 100 mg BID PO 07/23/17 21:00 07/24/17 20:40 (Cymbalta Dr) 60 mg DAILY PO 07/23/17 11:00 07/24/17 09:45 (Lasix) 40 mg DAILY PO 07/24/17 09:00 07/24/17 09:47 (Duoneb Neb) 1 ampule Q6HR NEB INH 07/23/17 16:00 07/25/17 08:13 (Lactinex) 1 tab BID PO 07/23/17 21:00 07/24/17 20:40 (Milk Of Magnesia Liq) 30 ml Q12HR PRN PO 07/23/17 11:00 (Namenda) 5 mg DAILY PO 07/24/17 09:00 07/24/17 09:47 (Miralax) 17 gm DAILY PO 07/24/17 09:00 07/24/17 09:45 (KCl) 10 meq DAILY PO 07/24/17 09:00 07/24/17 09:46 (Aldactone) 25 mg DAILY PO 07/24/17 09:00 07/24/17 09:47 (Geodon) 20 mg BID PO 07/23/17 21:00 07/24/17 20:40 (Tylenol) 650 mg Q6H PRN PO 07/24/17 08:30 07/24/17 09:47 (Percocet 5-325 Mg) 1 tab Q6H PRN PO 07/24/17 08:30 (Percocet 10-325 Mg) 1 tab Q6H PRN PO 07/24/17 08:30 (Dolophine) 5 mg DAILY PO 07/24/17 09:00 07/24/17 09:47 (Pill Splitter) 1 ea UNSCH PRN OTHER 07/24/17 08:45 (Neurontin) 200 mg TID PO 07/24/17 09:00 07/24/17 09:46 (Eliquis) 5 mg BID PO 07/24/17 21:00 07/24/17 20:40 (Prinivil) 2.5 mg DAILY PO 07/25/17 09:00 Allergies Allergies Coded Allergies No Known Allergies (Unverified07/23/17) Review of Systems All other ROS: ROS reviewed as documented in chart Exam I&O / VS Vital Signs Date Time Temp Pulse Resp B/P (MAP) Pulse Ox O2 Delivery O2 Flow Rate FiO2 07/25/17 07:00 97.5 75 18 136/95 (109) 95 07/25/17 07:00 71 07/25/17 06:00 87 07/25/17 05:00 64 07/25/17 04:00 97.8 63 20 156/86 (109) 96 07/25/17 04:00 55 07/25/17 03:00 55 07/25/17 02:00 55 07/25/17 01:00 71 07/25/17 00:00 98.1 77 20 154/83 (106) 95 07/25/17 00:00 63 07/24/17 23:00 69 07/24/17 22:02 69 07/24/17 21:00 54 07/24/17 20:00 64 07/24/17 20:00 97.8 64 20 159/89 (112) 97 07/24/17 19:00 62 07/24/17 18:00 58 07/24/17 17:00 64 07/24/17 16:00 61 07/24/17 15:01 75 19 111/64 (80) 96 07/24/17 15:00 59 07/24/17 14:00 72 07/24/17 13:00 70 07/24/17 12:16 78 07/24/17 11:00 98.0 89 19 126/80 (95) 98 07/24/17 11:00 81 07/24/17 10:52 20 07/24/17 10:52 20 07/24/17 10:00 82 Neurologic: Alert Psychiatric: Cooperative Exam Comments ox 1. unable to give date or exact place. calm, pleasant, follows, reduced hearing bilterally, dysarthric speech, face sym grossly, mild left hemiparesis 3 -4/5 leg weaker then arm, mild left sided hyper-reflexia, no clonus, planterflexor, withdraws to pin, further sensory/cerebellar/gait limited 2/2 mental status, fall risk Objective Micro and Labs Laboratory Tests Test 07/25/17 06:08 White Blood Count 7.2 Red Blood Count 4.51 Hemoglobin 13.8 Hematocrit 43.5 Mean Corpuscular Volume 96.4 Mean Corpuscular Hemoglobin 30.6 Mean Corpuscular Hemoglobin Concent 31.8 Red Cell Distribution Width 15.7 Platelet Count 285 Mean Platelet Volume 8.3 Neutrophils (%) (Auto) 56.4 Lymphocytes (%) (Auto) 28.1 Monocytes (%) (Auto) 7.1 Eosinophils (%) (Auto) 7.7 Basophils (%) (Auto) 0.7 Neutrophils # (Auto) 4.1 Lymphocytes # (Auto) 2.0 Monocytes # (Auto) 0.5 Eosinophils # (Auto) 0.6 Basophils # (Auto) 0.1 CBC Comment DIFF FINAL Differential Comment Activated Partial Thromboplast Time 42.8 Blood Urea Nitrogen 10 Creatinine 0.63 Random Glucose 95 Total Protein 6.9 Albumin 2.6 Calcium Level 9.0 Phosphorus Level 3.0 Magnesium Level 2.1 Alkaline Phosphatase 129 Aspartate Amino Transf (AST/SGOT) 14 Alanine Aminotransferase (ALT/SGPT) 9 Total Bilirubin 0.5 Sodium Level 139 Potassium Level 4.4 Chloride Level 103 Carbon Dioxide Level 28.4 Anion Gap 8 Estimat Glomerular Filtration Rate 120 Date/Time Source Procedure Growth Status 07/23/17 03:50 Blood Peripheral Aerobic Blood Culture - Preliminary NO GROWTH IN 1 DAY Resulted 07/23/17 03:50 Blood Peripheral Anaerobic Blood Culture - Preliminary NO GROWTH IN 1 DAY Resulted Problem Qualifiers (1) Altered mental status: Qualified Codes: R40.0 - Somnolence (2) Urinary tract infection: Qualified Codes: T83.511A - Infection and inflammatory reaction due to indwelling urethral catheter, initial encounter; N39.0 - Urinary tract infection , site not specified Yordy Wheatley MD Jul 25, 2017 09:15
[2017-07-25] MEDS: ZIPRASIDONE HCL 20 MG CAP PO SCH ×2 (09:29→23:16)
[2017-07-25] MEDS: FUROSEMIDE 40 MG TAB PO SCH (09:29)
[2017-07-25] MEDS: APIXABAN 5 MG TABLET PO SCH ×2 (09:29→23:16)
[2017-07-25] MEDS: ALLOPURINOL 100 MG TAB PO SCH ×2 (09:29→23:15)
[2017-07-25] MEDS: LACTOBACILLUS ACIDOPHILUS TAB PO SCH ×2 (09:29→23:15)
[2017-07-25] MEDS: POLYETHYLENE GLYCOL 17 GM PKG PO SCH (09:29)
[2017-07-25] MEDS: DOCUSATE SODIUM 100 MG CAP PO SCH ×2 (09:29→23:16)
[2017-07-25] MEDS: GABAPENTIN 100 MG CAP PO SCH ×3 (09:29→17:46)
[2017-07-25] MEDS: DULoxetine HCl DR 60 MG CAP PO SCH (09:29)
[2017-07-25] MEDS: MEMANTINE HCL 5 MG TAB PO SCH (09:29)
[2017-07-25] MEDS: POTASSIUM CHLORIDE 10 MEQ CONTROLLED RELEASE TAB PO SCH (09:30)
[2017-07-25] MEDS: METHADONE HCL 10 MG TAB PO SCH (09:30)
[2017-07-25] MEDS: SODIUM CHLORIDE 0.9% FLUSH 10 ML FLUSH IV FLUSH SCH ×2 (09:30→23:15)
[2017-07-25] MEDS: SPIRONOLACTONE 25 MG TAB PO SCH (09:30)
[2017-07-25] MEDS: LISINOPRIL 5 MG TAB PO SCH (09:32)
[2017-07-25] MEDS ORDERED: LIDO5DIS5 TOPICAL (11:26)
[2017-07-25] MEDS ORDERED: LISI-519 PO (11:26)
[2017-07-25] MEDS ORDERED: METH5TAB PO (11:26)
[2017-07-25] MEDS ORDERED: APIX5TAB PO (11:26)
--- NOTE | 2017-07-25 11:40 | HHI.DCPOC ---
Discharge Care Plan Diagnosis: (1) Altered mental status Goals to Promote Your Health * To prevent worsening of your condition and complications * To maintain your health at the optimal level Directions to Meet Your Goals Take your medications as prescribed Follow your dietary instruction Follow activity as directed Keep your appointments as scheduled Take your immunizations and boosters as scheduled If your symptoms worsen call your PCP, if no PCP go to Urgent Care Center or Emergency Room Smoking is Dangerous to Your Health. Avoid second hand smoke Call the 24-hour hour crisis hotline for domestic abuse at Nikos Cuellar MD Jul 25, 2017 11:40
--- NOTE | 2017-07-25 11:44 | HHI.DS ---
Discharge Summary Admission Date Jul 23, 2017 at 05:51 Discharge Date: Jul 26, 2017 Admitting Diagnosis AMS, Dysrhythmia, elevated troponin, UTI (1) CVA, old, hemiparesis ICD Code: I69.359 - Hemiplegia and hemiparesis following cerebral infarction affecting unspecified side Status: Chronic (2) Hemiplegia following CVA (cerebrovascular accident) ICD Code: I69.359 - Hemiplegia and hemiparesis following cerebral infarction affecting unspecified side (3) Elevated troponin ICD Code: R74.8 - Abnormal levels of other serum enzymes Status: Resolved (4) Altered mental status ICD Code: R41.82 - Altered mental status, unspecified Diagnosis: Principal Status: Resolved (5) Dysrhythmia, cardiac ICD Code: I49.9 - Cardiac arrhythmia, unspecified Status: Acute Procedures EEG 07-23 IMPRESSION Abnormal EEG due to some mild background slowing likely due to non-encephalopathic process versus dementia. No epileptiform features. Brief History - From Admission The patient is an 89 year old male who presents to the [facility] emergency department with a history of change in baseline mentation that was first noticed by the custodial staff at approximate 2 AM. The patient has a history of urinary retention requiring IN and out catheterization. They reportedly in and out catheterized him at approximate 2 AM when they noticed that he was less responsive. The patient has a history of dementia and normally becomes agitated, slightly combative when they attempted to catheterize him, however he did not seem to mind the procedure at all. They also reported that at 3 PM yesterday they noticed that he had a right facial droop. The patient has no other new extremity weakness. The patient does have a history of a left sided affecting cerebrovascular accident. The patient on arrival is awake and alert and requesting ice water. The patient denies any acute complaints. HIS REVIEW OF systems, the patient denies any known recent fevers,cough, congestion, neck pain, chest pain, shortness of breath, abdominal pain, vomiting, diarrhea, urinary symptoms, or new neurologic symptoms. According to the ambulance service that brought the patient and the patient was recently treated for both pneumonia and a urinary tract infection earlier earlier in June. The patient intermittently answers my questions, I am unsure whether this is related to the patient's history of dementia, his history of altered mentation, or his hearing problem. Patient did not follow any commands for me when I was in the room his nurse stated that he followed some for her earlier CBC/BMP: 07/25/17 0608 07/25/17 0608 Significant Findings Laboratory Tests Test 07/23/17 03:50 07/23/17 09:30 07/23/17 22:51 07/24/17 06:25 Red Blood Count 4.28 MIL/MM3 (4.50-5.90) 4.26 MIL/MM3 (4.50-5.90) Eosinophils (%) (Auto) 9.7 % (0.0-4.0) Eosinophils # (Auto) 0.8 TH/MM3 (0-0.4) Albumin 2.6 GM/DL (3.4-5.0) Alkaline Phosphatase 126 U/L (45-117) Alanine Aminotransferase (ALT/SGPT) 11 U/L (12-78) Estimat Glomerular Filtration Rate 87 ML/MIN (>89) Troponin I 0.12 NG/ML (0.02-0.05) 0.11 NG/ML (0.02-0.05) 0.12 NG/ML (0.02-0.05) C-Reactive Protein 1.39 MG/DL (0.00-0.30) Activated Partial Thromboplast Time 54.8 SEC (24.3-30.1) 63.3 SEC (24.3-30.1) Total Creatine Kinase 29 U/L (39-308) Test 07/24/17 06:33 07/24/17 06:53 07/25/17 06:08 Albumin 2.4 GM/DL (3.4-5.0) 2.6 GM/DL (3.4-5.0) Alkaline Phosphatase 122 U/L (45-117) 129 U/L (45-117) Aspartate Amino Transf (AST/SGOT) 12 U/L (15-37) 14 U/L (15-37) Alanine Aminotransferase (ALT/SGPT) 9 U/L (12-78) 9 U/L (12-78) Troponin I 0.11 NG/ML (0.02-0.05) White Blood Count 11.8 TH/MM3 (4.0-11.0) Red Blood Count 4.11 MIL/MM3 (4.50-5.90) Hemoglobin 12.8 GM/DL (13.0-17.0) Monocytes (%) (Auto) 11.0 % (0.0-8.0) Eosinophils (%) (Auto) 7.1 % (0.0-4.0) 7.7 % (0.0-4.0) Monocytes # (Auto) 1.3 TH/MM3 (0-0.9) Eosinophils # (Auto) 0.8 TH/MM3 (0-0.4) 0.6 TH/MM3 (0-0.4) Mean Corpuscular Hemoglobin Concent 31.8 % (32.0-36.0) Activated Partial Thromboplast Time 42.8 SEC (24.3-30.1) Imaging Last Impressions Head CT 07/23/17343 Signed Impressions: Service Date/Time: Sunday, July 23, 2017 04:20 - CONCLUSION: 1. No acute intracranial abnormality is identified. 2. Possible spinal canal narrowing at the C1-C2 level. Lio Palacios MD Chest X-Ray 07/23/17343 Signed Impressions: Service Date/Time: Sunday, July 23, 2017 03:57 - CONCLUSION: Underinflation. However, no acute cardiopulmonary abnormality is appreciated. Lio Palacios MD Head Magnetic Resonance Angiography 07/23/17 Signed Impressions: Service Date/Time: Sunday, July 23, 2017 16:39 - CONCLUSION: Unremarkable study Lio Méndez MD Cervical Spine MRI 07/23/17 Signed Impressions: Service Date/Time: Sunday, July 23, 2017 16:39 - CONCLUSION: Fusions as described above. Most significant finding is neural foramina encroachment on both the right and left. James Garcia MD FACR Carotid Artery Ultrasound 07/23/17 Signed Impressions: Service Date/Time: Sunday, July 23, 2017 08:03 - CONCLUSION: No evidence of flow-limiting carotid stenosis. Lio Méndez MD Brain MRI 07/23/17 Signed Impressions: Service Date/Time: Sunday, July 23, 2017 16:39 - CONCLUSION: Abnormal appearance of the craniovertebral junction. Intracranial contents are nonacute in appearance. Lio Méndez MD PE at Discharge examined on 07/26/17. Patient is conversive, no slurred speech, speaks coherently. Unlabored breathing, left knee appears nonedematous. Hospital Course Patient was admitted on telemetry. With conservative medical management his altered mental status recovered to baseline. Cardiology evaluated the patient and did not suspect acute coronary syndrome, recommended medical management otherwise, started patient on anticoagulation for atrial fibrillation. Neurology evaluated the patient, obtained brain and cervical spine MRI, no acute findings including and no cord impingement were reported, thus patient was clear for discharge from neurology standpoint. Therapy had evaluated the patient and recommended that he continue with speech and occupational therapy upon discharge in an inpatient facility given the patient's poor ambulatory status likely secondary to severe osteoarthritis especially in his left knee. Patient had been treated with antibiotics during his inpatient stay for presumed urinary tract infection prior to his hospital admission. There was no UA collected at our facility but the patient's symptoms appeared to have resolved from his altered mentation and denied any dysuria, therefore I will not continue the ciprofloxacin upon discharge. Pt Condition on Discharge: Stable Discharge Disposition: Discharge to SNF Discharge Time: <= 30 minutes Discharge Instructions Speech Therapy-Diet Recommends: Pureed, Mechanical Soft, Chopped Meat w/Gravy Activities you can perform: Partial Weight Bearing Nikos Cuellar MD Jul 25, 2017 11:44
--- NOTE | 2017-07-25 14:41 | HHI.PR ---
Subjective Remarks Discussed with case management, nursing, and physical therapy. Placement likely available tomorrow for rehabilitation. No acute events reported overnight from nursing. Patient is urinating without catheter. It was clarified with nursing and case management that the patient was not on antibiotics just prior to admission at his residential/nursing facility for any infection. Patient does wince in pain when we move his left leg, nursing reports that he complained of left knee pain for the first time yesterday. No falls occurred since admission Objective Vital Signs Date Time Temp Pulse Resp B/P (MAP) Pulse Ox O2 Delivery O2 Flow Rate FiO2 07/25/17 14:00 85 07/25/17 13:00 81 07/25/17 11:00 92 07/25/17 11:00 81 20 105/58 (74) 96 07/25/17 10:36 18 07/25/17 10:00 88 07/25/17 09:00 78 07/25/17 08:00 78 07/25/17 07:00 97.5 75 18 136/95 (109) 95 07/25/17 07:00 71 07/25/17 06:00 87 07/25/17 05:00 64 07/25/17 04:00 97.8 63 20 156/86 (109) 96 07/25/17 04:00 55 07/25/17 03:00 55 07/25/17 02:00 55 07/25/17 01:00 71 07/25/17 00:00 98.1 77 20 154/83 (106) 95 07/25/17 00:00 63 07/24/17 23:00 69 07/24/17 22:02 69 07/24/17 21:00 54 07/24/17 20:00 64 07/24/17 20:00 97.8 64 20 159/89 (112) 97 07/24/17 19:00 62 07/24/17 18:00 58 07/24/17 17:00 64 07/24/17 16:00 61 07/24/17 15:01 75 19 111/64 (80) 96 07/24/17 15:00 59 I/O 07/24/17 07/24/17 07/24/17 07/25/17 07/25/17 07/25/17 07:00 15:00 23:00 07:00 15:00 23:00 Intake Total 452 ml 200 ml 770 ml 240 ml Output Total 500 ml 1100 ml Balance 452 ml 200 ml 270 ml -860 ml Intake Oral 120 ml 480 ml 240 ml IV Total 332 ml 200 ml 290 ml Output Urine Total 500 ml 1100 ml # Voids 1 Result Diagram: 07/25/17 0608 07/25/17 0608 Imaging Last [address] 07/23/174 Signed Impressions: Service Date/Time: Sunday, July 23, 2017 04:20 - CONCLUSION: 1. No acute intracranial abnormality is identified. 2. Possible spinal canal narrowing at the C1-C2 level. Lio Palacios MD Chest X-Ray 07/23/17343 Signed Impressions: Service Date/Time: Sunday, July 23, 2017 03:57 - CONCLUSION: Underinflation. However, no acute cardiopulmonary abnormality is appreciated. Lio Palacios MD Head Magnetic Resonance Angiography 07/23/17 Signed Impressions: Service Date/Time: Sunday, July 23, 2017 16:39 - CONCLUSION: Unremarkable study Lio Méndez MD Cervical Spine MRI 07/23/17 0000 Signed Impressions: Service Date/Time: Sunday, July 23, 2017 16:39 - CONCLUSION: Fusions as described above. Most significant finding is neural foramina encroachment on both the right and left. James Garcia MD FACR Carotid Artery Ultrasound 07/23/17 Signed Impressions: Service Date/Time: Sunday, July 23, 2017 08:03 - CONCLUSION: No evidence of flow-limiting carotid stenosis. Lio Méndez MD Brain MRI 07/23/17 0000 Signed Impressions: Service Date/Time: Sunday, July 23, 2017 16:39 - CONCLUSION: Abnormal appearance of the craniovertebral junction. Intracranial contents are nonacute in appearance. Lio Méndez MD Objective Remarks GENERAL: No acute distress CARDIOVASCULAR: Regular rate and rhythm without murmurs, gallops, or rubs. Regular radial pulse palpable in right arm RESPIRATORY: Unlabored breathing MUSCULOSKELETAL: Globally tender left knee including patella, patient limiting movement secondary to pain, skin over left knee feels insurance claim representative comparison to right knee but there is no erythema nor edema, can minimally flex the left knee ; no tenderness noted on right knee motion or palpation A/P Assessment and Plan Altered mental status - resolved. EEG showing no epileptiform activity. Discuss cervical spine and brain MRIs with neurology, no reported cord compression, stable to discharge from neurology standpoint. ? etiology of delirium since there is no clear signs of infection. Patient's cardiac status is overall stable with no definitive neurological etiology pinpointed. Afib - on eliquis and rate control per cardiology, no further intervention warranted, we'll discontinue telemetry. Debility - patient to be discharged tomorrow to rehabilitation placement or he' ll receive physical therapy and occupational therapy. L knee OA - lidoderm patch + PT, I suspect this is chronic based upon physical therapy's assessment History of CVA History of dementia/advanced dementia Chronic anticoagulation with aspirin, now on eliquis Hypertension on medications hyperlipidemia on statin Chronic pain on methadone Chronic anxiety depression dementia continue home medications Avoid sedating medication Chronic neurogenic bladder versus bladder outlet obstruction with chronic straight catheter multiple times a day CHFrEF - started lisinopril, continue aldactone Out of an approx 40 min visit at least 20 min were spent in a [id number] visit with the patient combined with being on the sargent discussing the patient's disposition, prognosis, and plan of care with nursing, case management, and physical therapy. There is no family at the bedside and the patient has dementia. Over half of the time was devoted to coordinating care nursing staff , case management, and therapy staff. Patient was expected to be discharged today but does not have placement ready until tomorrow. Nikos Cuellar MD Jul 25, 2017 14:41
[2017-07-25] MEDS: ATORVASTATIN 20 MG TAB PO SCH (23:16)
[2017-07-26] VITALS (12 sets, daily range): BP systolic 112–126; BP diastolic 55–67; PULSE 52–79; RESP 16–20; TEMP 97.9–98.1; O2SAT 95–97
[2017-07-26] MEDS: RESP: ALBUTEROL 2.5 MG/IPRATROPIUM 0.5 MG NEB (SCH) INH ×2 (02:54→09:35)
[2017-07-26] MEDS: POLYETHYLENE GLYCOL 17 GM PKG PO SCH (09:00)
[2017-07-26] MEDS: SODIUM CHLORIDE 0.9% FLUSH 10 ML FLUSH IV FLUSH SCH (09:00)
[2017-07-26] MEDS: FUROSEMIDE 40 MG TAB PO SCH (09:00)
[2017-07-26] MEDS: MEMANTINE HCL 5 MG TAB PO SCH (09:00)
[2017-07-26] MEDS: LISINOPRIL 5 MG TAB PO SCH (09:00)
[2017-07-26] MEDS: DULoxetine HCl DR 60 MG CAP PO SCH (10:11)
[2017-07-26] MEDS: ZIPRASIDONE HCL 20 MG CAP PO SCH (10:11)
[2017-07-26] MEDS: METHADONE HCL 10 MG TAB PO SCH (10:12)
[2017-07-26] MEDS: LACTOBACILLUS ACIDOPHILUS TAB PO SCH (10:12)
[2017-07-26] MEDS: DOCUSATE SODIUM 100 MG CAP PO SCH (10:12)
[2017-07-26] MEDS: POTASSIUM CHLORIDE 10 MEQ CONTROLLED RELEASE TAB PO SCH (10:13)
[2017-07-26] MEDS: APIXABAN 5 MG TABLET PO SCH (10:13)
[2017-07-26] MEDS: SPIRONOLACTONE 25 MG TAB PO SCH (10:13)
[2017-07-26] MEDS: ALLOPURINOL 100 MG TAB PO SCH (10:13)
[2017-07-26] MEDS: GABAPENTIN 100 MG CAP PO SCH ×2 (10:13→12:49)
== END 2017-07-26 16:03 | DRG 690 ==
LOC: NEPC 03:35 → NEDA 05:51 → HCIS 11:52
PROVIDERS: ADMIT Hospitalist; ATTEND Hospitalist
DX: N39.0 Urinary tract infection, site not specified (principal); I50.9 Heart failure, unspecified; F03.90 Unspecified dementia, unspecified severity, without behavioral disturbance, psychotic disturbance, mood disturbance, and anxiety; I69.359 Hemiplegia and hemiparesis following cerebral infarction affecting unspecified side; I48.91 Unspecified atrial fibrillation; Z79.01 Long term (current) use of anticoagulants; M17.12 Unilateral primary osteoarthritis, left knee; R41.82 Altered mental status, unspecified; Z87.440 Personal history of urinary (tract) infections; Z87.01 Personal history of pneumonia (recurrent); H91.90 Unspecified hearing loss, unspecified ear; I25.10 Atherosclerotic heart disease of native coronary artery without angina pectoris; Z95.1 Presence of aortocoronary bypass graft; I10 Essential (primary) hypertension; K21.9 Gastro-esophageal reflux disease without esophagitis; E78.5 Hyperlipidemia, unspecified; F41.8 Other specified anxiety disorders; G89.29 Other chronic pain; M54.9 Dorsalgia, unspecified; I87.8 Other specified disorders of veins; Z79.891 Long term (current) use of opiate analgesic; R29.810 Facial weakness; R74.8 Abnormal levels of other serum enzymes
CPT/HCPCS: 70450; 70544; 70551; 71010; 72141; 80053; 82550; 83036; 83605; 83735; 83880; 84100; 84439; 84443; 84484; 85025; 85027; 85610; 85730; 86140; 87040; 93005; 93306; 93880; 94640; 94664; 95819; 96374; J0171; J0461; J0744; J1644; J7050